=== PATIENT | female | born 1955 | race Caucasian/White ===

== ENCOUNTER 2021-05-05 20:24 | Inpatient (IN) | payer MEDICARE, OTHER, SELFPAY ==
[2021-05-05] VITALS (7 sets, daily range): BP systolic 81–135; BP diastolic 48–67; PULSE 83–124; RESP 16–24; TEMP 36.3; O2SAT 85–100; BMI 25.5
--- NOTE | 2021-05-05 20:28 | EKG12_ITS ---
Test Reason : SYNCOPE Blood Pressure : / mmHG Vent. Rate : 092 BPM Atrial Rate : 092 BPM P-R Int : 000 ms QRS Dur : 202 ms QT Int : 506 ms P-R-T Axes : 000 255 055 degrees QTc Int : 625 ms Ventricular-paced rhythm Biventricular pacemaker detected Abnormal ECG Confirmed by BROCK WHITE, KIERAN ([id number]), rewrite editor NICK VERGARA ([id number]) on 05/07/2021 9:31:49 AM Referred By: Confirmed By:KIERAN GUTIÉRREZ MD
--- NOTE | 2021-05-05 20:45 | CT_ITS ---
EXAM: CT HEAD WITHOUT INTRAVENOUS CONTRAST : 1955 CLINICAL INDICATION: syncope TECHNIQUE: Multiple axial images were obtained of the head without intravenous contrast. This CT exam was performed using one or more of the following dose reduction techniques: automated exposure control, adjustment of the mA and/or kV according to patient size, and/or use of iterative reconstruction technique. This report was created using [employer] report generation technology. COMPARISON: None. FINDINGS: BRAIN AND EXTRA-AXIAL SPACES: Unremarkable. No intra- or extra-axial hemorrhage. No evidence of acute infarct. No intracranial mass or mass effect. There is preservation of the garcia/white matter interface. Posterior fossa structures are unremarkable. Ventricles are appropriate for age. No hydrocephalus. Basal cisterns are patent. BONES/JOINTS: Unremarkable. No discrete lytic or blastic abnormalities. SINUSES: Unremarkable as visualized. Clear. MASTOID AIR CELLS: Unremarkable. Clear. ORBITS: Visualized globes, extraocular muscles, optic nerves and retrobulbar fat appear unremarkable. CT/Brain/Head without Contrast IMPRESSION: Negative head/brain CT without intravenous contrast. Individualized dose optimization techniques were used for this CT. at 2138 Reported and signed by: Devin Hung MD Electronically Signed: Devin Hung MD at 21:37 EDT Tel , Service support ,
--- NOTE | 2021-05-05 20:45 | RAD_ITS ---
EXAM: XR CHEST, 1 VIEW : 1955 CLINICAL INDICATION: syncope TECHNIQUE: Frontal view of the chest. This report was created using [employer] report generation technology. COMPARISON: None. FINDINGS: LUNGS AND PLEURAL SPACES: Unremarkable. No consolidation or edema. No pneumothorax. No effusion. HEART: Cardiac silhouette is enlarged in size. MEDIASTINUM: Central airways and mediastinal contour are unremarkable. BONES/JOINTS: Unremarkable. SOFT TISSUES: Unremarkable. TUBES, LINES AND DEVICES: Left side pacemaker is in place. RAD/Chest 1 View (Portable) IMPRESSION: Cardiomegaly with no acute pulmonary abnormality. at 2222 Reported and signed by: Devin Hung MD Electronically Signed: Devin Hung MD at 22:21 EDT Tel , Service support ,
--- NOTE | 2021-05-05 20:53 | ED.RN ---
pt brought back from CT, tech states patient had 2 syncopal episodes while in CT. Pt states she is not feeling well. Pt remains on the monitor, BP is low and HR is elevated. Dr Rayo notified.
[2021-05-05 20:58] LABS: Absolute Neutrophil Count 7.4 X10^3/uL (2.0-7.7); Basophil# 0.05 X10^3/uL; Basophil% 0.4 % (0-1); Eosinophil# 0.15 X10^3/uL; Eosinophils% 1.3 % (0-5); Hematocrit 41.3 % (37-47); Hemoglobin 13.1 g/dL (12.0-15.0); Lymphocyte % 21.6 % (19-41); Mean Corp Hgb Conc 31.7 g/dL (32-36); Mean Corpuscular Volume 91.6 fL (81-99); Mean Platelet Vol. 11.3 fl (6.2-12.0); Monocyte# 1.04 X10^3/uL; Monocyte% 9.3 % (0-10); NRBC Flagged by Analyzer 0 % (0-5); Neutrophil # 7.44 X10^3/uL (2.7-7.7); Platelet Count 198 K/mm3 (150-450); RBC Distribution Width CV 13.6 % (11.6-14.6); RBC Distribution Width SD 46.2 fl (35.1-43.9); Red Blood Count 4.51 M/mm3 (4.2-5.4); White Blood Count 11.1 K/mm3 (4.4-11.0)
[2021-05-05 21:12] LABS: Anion Gap 9 (5-15); BUN 29 mg/dL (7-18); BUN/Creat Ratio 32.6 RATIO (10-20); Calcium,Total 9.1 mg/dL (8.5-10.1); Chloride 105 mmol/L (98-107); Creatinine, Serum 0.89 mg/dL (0.55-1.02); EST Glomerular Filtration Rate 67 mL/min (>60); Est Glom Filt Rate - Afr Amer 81 mL/min (>60); Estimated Creatinine Clearance 57.42 ml/min; Glucose 119 mg/dL (74-106); Magnesium 2.3 mg/dL (1.6-2.6); Potassium 3.7 mmol/L (3.5-5.1); Sodium Level 140 mmol/L (136-145); Troponin-I HS 45 pg/mL (3.0-54.0)
[2021-05-06] VITALS (27 sets, daily range): BP systolic 106–129; BP diastolic 45–69; PULSE 66–74; RESP 13–22; TEMP 36.5–36.8; O2SAT 92–100; BMI 24.5
--- NOTE | 2021-05-06 00:04 | EX.ED.DYSGE1 ---
HPI History of Present Illness Chief Complaint: Syncope Narrative Narrative: Patient is a 65-year-old female with past medical history of heart failure who has had a pacemaker/defibrillator in place for about 8 years. She states today she was walking into her garage when she felt her heart beating abnormally and then had a bout of syncope. She did strike her head with the fall and with concern for the syncopal event as well as head trauma EMS was called to bring her in for evaluation. She denies any blood thinner use [facility] Medical History Cardiac defibrillator in place CHF (congestive heart failure) Pacemaker Allergy/AdvReac Type Severity Reaction Status Date / Time antibiotic Allergy PT UNABLE Uncoded 05/05/21 20:31 TO RESPOND-NEEDS F/U Social History Smoking Status: Never smoker ROS ROS ED Constitutional Constitutional ED: Denies chills or fever(s) ENT ENT ED: Denies sore throat Cardiovascular Cardiovascular: Reports palpitations and racing heartbeat; Denies chest pain Respiratory/Chest Respiratory/Chest: Denies cough or dyspnea Gastrointestinal Gastrointestinal: Reports nausea; Denies abdominal pain, diarrhea or vomiting Genitourinary Genitourinary ED: Denies dysuria Musculoskeletal Musculoskeletal: Denies back pain, myalgias or neck pain Integumentary Reports other Details: Positive head laceration ; Denies rash Neurologic Neurologic: Denies headache(s) Hematologic/Lymphatic Hematologic/Lymphatic: Denies easy bleeding or easy bruising EXAM Physical Exam Const Vital Signs: 05/05/21 20:26 05/05/21 20:31 05/05/21 22:38 Temperature 97.4 F L Temperature Source Temporal Pulse Rate 93 95 Respiratory Rate 24 H 16 Respiratory Effort Normal Non-Labored Respiratory Pattern Normal Blood Pressure 128/67 H 134/59 H Blood Pressure Mean 87 84 Pulse Ox 96 100 Oxygen Delivery Method Room Air Positive well nourished and well developed General Appearance ED: well developed HEENT HEENT Narrative: Patient has a hematoma to the right occipital/temporal portion of the scalp with a 2.5 cm linear laceration that is subcutaneous layer deep with minimal ooze of blood and no foreign body. No signs of depressed or basilar skull fracture Eyes PERRL and EOMs intact bilaterally Neck supple Neck Narrative: No midline pain on palpation no bony deformity or step-off of the cervical spine Chest Wall palpation of chest normal Resp normal respiratory effort and clear to auscultation bilaterally Cardio regular rate and regular rhythm GI non-tender, non-distended and no masses Auscultation: normoactive bowel sounds Palpation: soft Back/Spine Back/Spine Narrative: No bony deformity or step-off of the thoracic or lumbar spine no midline pain with palpation Extremity normal to inspection Neuro oriented x3 and CN's II-XII intact bilaterally Sensorium / Orientation: alert Motor Exam: strength 5/5 throughout Psych mental status grossly normal Skin no rashes or lesions noted Skin Narrative: Hematoma and laceration to the scalp as documented above MDM MDM MDM Narrative Medical decision making narrative: Patient presented to the ER awake and alert with normal neurologic exam and no signs of depressed or basilar skull fracture. However with the syncopal event and head trauma basic work-up and head CT was ordered. Because of the patient's pacemaker history it was interrogated and did confirm she has had multiple bouts of ventricular tachycardia. Patient also had 2 bouts of syncope while over in CAT scan consistent with the recurrent V. tach. Labs revealed no clinically significant findings and head CT revealed no acute trauma. However with recurrent V. tach episodes I do feel the patient will need placed in the hospital for further care. I discussed the case with cardiology and they feel she will need an automatic dry starch operator which we do not have and therefore when he transferred. The case was discussed with [facility] and they do agree to accept the patient at this time. Patient was started on amiodarone drip secondary to recurrent V. tach. Patient had the right scalp wound cleaned with chlorhexidine, it was anesthetized with 5 mL of 2% lidocaine with epinephrine local fashion. The wound was copiously irrigated with normal saline and then 7 mario were placed into the wound. This brought together the wound with good approximation. Patient tolerated procedure well without complication Lab Data Attestation: I reviewed the patient's lab results. Labs: Laboratory Results - last 24 hr 05/05/21 05/05/21 20:25 20:25 WBC 11.1 H RBC 4.51 Hgb 13.1 Hct 41.3 MCV 91.6 MCH 29.0 MCHC 31.7 L RDW Std Deviation 46.2 H RDW Coeff of Bonifacio 13.6 Plt Count 198 MPV 11.3 Immature Gran % (Auto) 0.400 Neut % (Auto) 67.0 Lymph % (Auto) 21.6 [place] % (Auto) 9.3 Eos % (Auto) 1.3 Baso % (Auto) 0.4 Absolute Neuts (auto) 7.4 Absolute Lymphs (auto) 2.40 Nucleated RBC % 0 Sodium 140 Potassium 3.7 Chloride 105 Carbon Dioxide 26.0 Anion Gap 9 BUN 29 H Creatinine 0.89 Estim Creat Clear Calc 57.42 Est GFR (MDRD) Af Amer 81 Est GFR (MDRD) Non-Af 67 BUN/Creatinine Ratio 32.6 H Glucose 119 H Calcium 9.1 Magnesium 2.3 Troponin I High Sens 45 Radiography Diagnostic Testing: Clinical Impression(s) from Imaging Studies Brain CT 05/05/21 20:45 IMPRESSION: Negative head/brain CT without intravenous contrast. Individualized dose optimization techniques were used for this CT. at 2138 Reported and signed by: Devin Hung MD Electronically Signed: Devin Hung MD at 21:37 EDT Tel , Service support , Chest X-Ray 05/05/21 20:45 IMPRESSION: Cardiomegaly with no acute pulmonary abnormality. at 2222 Reported and signed by: Devin Hung MD Electronically Signed: Devin Hung MD at 22:21 EDT Tel , Service support , Discharge Plan Triage Chief Complaint: Syncope ED Provider: Clayton Rayo Dx/Rx/DC Orders Clinical Impression: Nonsustained paroxysmal ventricular tachycardia, Syncope and collapse, Laceration of scalp Primary Care Provider: Care Physician,No Primary Referrals: Care Physician,No Primary [Primary Care Provider] - Disposition Disposition: Transfer to Another Type [facility]
--- NOTE | 2021-05-06 01:52 | ED.RN ---
[facility] PAGED FOR TRANSFER AT THIS TIME. THEY WILL CALL BACK
--- NOTE | 2021-05-06 01:55 | ED.RN ---
[facility] DENIED THE PATIENT BECAUSE WE ARE NOT IN THEIR ZONE. THEY SAID THE CLOSET FOR THIS PATIENT WOULD BE [facility] AND THEY ARE CURRENTLY FULL AND NOT ACCEPTING ANY PATIENTS. THE PATIENT REQUEST [facility] NEXT.
--- NOTE | 2021-05-06 02:10 | ED.RN ---
ACCEPTED AT [facility], BUT DO NOT HAVE A BED ASSIGNMENT
--- NOTE | 2021-05-06 07:35 | HP.PCM.HOS_ITS ---
HPI - General General Date of Admission: 05/06/21 HPI Narrative JUDIE COLMENARES, is a 65 F with a PMH as outlined who was admitted via the ED with a complaint of abnormal heart beat and syncope. She has a history of heart failure and has a pacemaker/defibrillator in place; she usually follows with her behavior management specialist at [facility] in [place]. She says she hit her head during the syncope. She denied any chest pain, nausea vomiting or abdominal pain. Review of symptoms otherwise negative. She is not on any blood thinner. She apparently had multiple episodes of vtach. She was started on amiodarone drip on arrival in the ED. vitals showed blood pressure of 116/50 with pulse rate of 66, respiratory rate of 21 and she was saturating at 96% on room air. Of note, patient also had a presyncopal episode while she was in the CT scan suite. CBC and BMP were both unremarkable. Initial troponin was negative but subsequently trended upwards to the 200s. Plan was for patient to be transferred to [facility] for review by an desk pen set assembler and she was accepted at [facility]. However due to lack of availability of beds and patient seen down in the ER for nearly 12 hours, she was admitted to the floor pending transfer. [facility] Medical History (Updated 05/06/21 @ 17:[address] Nino Diaz MD) Cardiac defibrillator in place CHF (congestive heart failure) Irregular heart beat Pacemaker Home Medications furosemide 20 mg PO DAILY 05/06/21 [History Last Taken 05/05/21 10:00] lisinopril 5 mg PO DAILY 05/06/21 [History Last Taken 05/05/21 12:00] potassium 99 mg PO DAILY 05/06/21 [History Last Taken 05/05/21 10:00] Allergy/AdvReac Type Severity Reaction Status Date / Time antibiotic Allergy PT UNABLE Uncoded 05/05/21 20:31 TO RESPOND-NEEDS F/U Social History Smoking Status: Never smoker ROS Constitutional Constitutional: Reports malaise; Denies anorexia, change in weight, chills, fatigue, fever(s), night sweats or weakness ENT HEENT: Reports nasal congestion; Denies abnormal hearing or hearing loss Cardiovascular Cardiovascular: Reports rapid heart rate and syncope; Denies chest pain, dyspnea on exertion, lightheadedness, orthopnea, palpitations or paroxysmal nocturnal dyspnea Respiratory/Chest Respiratory/Chest: Denies cough, shortness of breath at rest, shortness of breath with exertion or wheezing Gastrointestinal Gastrointestinal: Reports abdominal pain; Denies diarrhea, nausea or vomiting Genitourinary Genitourinary: Denies burning urination Musculoskeletal Musculoskeletal: Denies arthralgias Neurologic Neurologic: Reports dizziness and syncope; Denies focal weakness, headache(s), numbness or seizures Psychiatric Psychiatric: Denies anxiety or depression Endocrine Endocrinology: Denies change in body appearance Hematologic/Lymphatic Hematologic/Lymphatic: Denies anemia Vital Signs Vital Signs Vital Signs: 05/05/21 20:26 05/05/21 20:31 05/05/21 21:00 Temperature 97.4 F L Temperature Source Temporal Pulse Rate 93 124 H Respiratory Rate 24 H 22 H Respiratory Effort Normal Non-Labored Respiratory Pattern Normal Blood Pressure 128/67 H 81/48 L Blood Pressure Mean 87 59 Pulse Ox 96 85 Oxygen Delivery Method Room Air Room Air Oxygen Flow Rate (L/min) 05/05/21 21:10 05/05/21 21:30 05/05/21 22:30 Temperature Temperature Source Pulse Rate 83 96 Respiratory Rate 18 22 H 20 H Respiratory Effort Respiratory Pattern Blood Pressure 135/58 H 131/58 H Blood Pressure Mean 83 82 Pulse Ox 96 94 99 Oxygen Delivery Method Nasal Cannula Nasal Cannula Nasal Cannula Oxygen Flow Rate (L/min) 4 4 4 05/05/21 22:38 05/05/21 23:30 05/06/21 03:06 Temperature Temperature Source Pulse Rate 95 95 73 Respiratory Rate 16 18 18 Respiratory Effort Respiratory Pattern Blood Pressure 134/59 H 124/57 H 117/46 L Blood Pressure Mean 84 79 69 Pulse Ox 100 98 92 Oxygen Delivery Method Nasal Cannula Nasal Cannula Oxygen Flow Rate (L/min) 2 2 05/06/21 04:54 05/06/21 05:02 05/06/21 06:10 Temperature Temperature Source Pulse Rate 72 73 68 Respiratory Rate 16 18 18 Respiratory Effort Respiratory Pattern Blood Pressure 116/56 L 114/49 L 112/60 Blood Pressure Mean 76 70 77 Pulse Ox 98 98 98 Oxygen Delivery Method Room Air Room Air Oxygen Flow Rate (L/min) 05/06/21 07:21 Temperature 97.7 F L Temperature Source Oral Pulse Rate Respiratory Rate Respiratory Effort Respiratory Pattern Blood Pressure Blood Pressure Mean Pulse Ox Oxygen Delivery Method Oxygen Flow Rate (L/min) Weight Weight: 158 lb 4.67 oz Body Mass Index (BMI) 25.5 Physical Exam Const alert, oriented x3, healthy appearing and well nourished General Appearance: cooperative HEENT normocephalic Eyes PERRL, EOMs intact bilaterally and conjunctivae normal Neck no lymphadenopathy Resp normal respiratory effort, no retractions, no use of accessory muscles and clear to auscultation bilaterally Cardio regular rate, regular rhythm, S1 normal heart sound, S2 normal heart sound and no murmurs GI normal to inspection, nondistended, normoactive bowel sounds, soft to palpation, non-tender and non-distended Extremity normal to inspection, full ROM and no clubbing, cyanosis or edema Peripheral Pulses: Yes pulses 2+ throughout Skin no rashes or lesions noted Neuro oriented x3 and CN's II-XII intact bilaterally Sensorium / Orientation: awake and alert Psych affect normal Results Lab / Micro Data Result Diagrams: 05/05/21 20:25 05/05/21 20:25 Labs: Laboratory Results - last 24 hr 05/05/21 20:25: WBC 11.1 H, RBC 4.51, Hgb 13.1, Hct 41.3, MCV 91.6, MCH 29.0, MCHC 31.7 L, RDW Std Deviation 46.2 H, RDW Coeff of Bonifacio 13.6, Plt Count 198, MPV 11.3, Immature Gran % (Auto) 0.400, Neut % (Auto) 67.0, Lymph % (Auto) 21.6, [place] % (Auto) 9.3, Eos % (Auto) 1.3, Baso % (Auto) 0.4, Absolute Neuts (auto) 7.4, Absolute Lymphs (auto) 2.40, Nucleated RBC % 0 05/05/21 20:25: Sodium 140, Potassium 3.7, Chloride 105, Carbon Dioxide 26.0, An ion Gap 9, BUN 29 H, Creatinine 0.89, Estim Creat Clear Calc 57.42, Est GFR ( MDRD) Af Amer 81, Est GFR (MDRD) Non-Af 67, BUN/Creatinine Ratio 32.6 H, Glucose 119 H, Calcium 9.1, Magnesium 2.3, Troponin I High Sens 45 Micro: Microbiology 05/05/21 23:30 Nasal Secretion SARS-CoV-2 Antigen (Rapid) - Final Radiology Impression Brain CT 05/05/21 20:45 IMPRESSION: Negative head/brain CT without intravenous contrast. Individualized dose optimization techniques were used for this CT. at 2138 Reported and signed by: Devin Hung MD Electronically Signed: Devin Hung MD at 21:37 EDT Tel , Service support , Chest X-Ray 05/05/21 20:45 IMPRESSION: Cardiomegaly with no acute pulmonary abnormality. at 2222 Reported and signed by: Devin Hung MD Electronically Signed: Devin Hung MD at 22:21 EDT Tel , Service support , Assessment & Plan Assessment/Plan (1) Nonsustained paroxysmal ventricular tachycardia: (2) Syncope and collapse: (3) Laceration of scalp: PLAN: #syncope due to ventricular tachycardia * patient accepted at [facility], she is only being admitted here because she remained in the ED for about 12 hours pending transfer. Patient understands that we do not have an desk pen set assembler in-house and per discussion with cardiology, the most likely cause of her symptoms might be a broken defibrillator lead for which she will need evaluation by electrophysiology. Patient understands this and is willing to be admitted to await transfer when a bed is available at [facility]. * She is currently on amiodarone drip. We will continue. Cycle troponins. Initial troponin was negative but trended up to the mid 200s. * Cardiology consulted and on board. 2D echo ordered. * #Paroxysmal ventricular tachycardia: As above #History of heart failure with reduced ejection fraction * EF not known. 2D echo pending. However she does have a defibrillator and pacemaker which she states was put in because her heart function was reduced due to heart failure. * On p.o. Lasix 20 mg daily. * #Nonstemi * troponin was initially negative, but subsequently trended upwards to 200s. * cardiology consulted * she had 2D echo which showed EF of 10% with severe global hypokinesis * cardiology considering scheduling patient for cardiac cath if she is not transferred to [facility] by 05/07/2021 * #Hypertension: On lisinopril DVT prophylaxis: Lovenox CODE STATUS: Full code * Patient counseled extensively about different types of CODE STATUS including full code, DNR CCA and DNR CCA. Patient elects to be full code. * Total [id number] time 17 minutes. * Disposition: Awaiting transfer to [facility]. I did call [facility] transfer line to follow-up. There is still no bed available as at now. Patient did get a bed at [facility] and was transferred there on 05/06/20 21. This note therefore serves as both an admission H&P and discharge summary. Charges/Coding Visit Charges OBSV E&M: 05504 Observ/hosp same date L3 Procedures Hospitalists Procedures: 17254 Advncd Care Plan 30 Min
--- NOTE | 2021-05-06 07:37 | NURSING ---
DR KRYSTEN HYDE
--- NOTE | 2021-05-06 07:41 | NURSING ---
PCU KORAM SYNCOPE, VTACH
[2021-05-06 09:12] LABS: Troponin-I HS 246 pg/mL (3.0-54.0)
[2021-05-06] MEDS: 0.9% Saline Lock 10 ML Syringe IV (10:48)
[2021-05-06] MEDS: Enoxaparin 40 MG/0.4 ML Syringe SC (10:48)
--- NOTE | 2021-05-06 11:04 | PCS.PANDOC ---
PANDEMIC DOCUMENTATION INITIATED: Date: 05/06/2021 Time: 0800
[2021-05-06 11:35] LABS: Troponin-I HS 210 pg/mL (3.0-54.0)
[2021-05-06] MEDS: Furosemide 20 MG Tablet PO (11:35)
--- NOTE | 2021-05-06 14:51 | ECHOD_ITS ---
Reason For Study: ARRHYTHMIA Procedure This was a 2D Doppler, Color Flow transthoracic echocardiogram. Exam performed portable in patient room. Left Ventricle Severely dilated left ventricle. The estimated ejection fraction is 10 %. There is severe global hypokinesis of the left ventricle. Right Ventricle Normal RV size. ICD or pacer leads identified within the right ventricle. Normal systolic function. Atria The left atrium is moderately enlarged. Normal right atrium. Mitral Valve Normal mitral valve. Moderate (2+) eccentric mitral valve insufficiency. Tricuspid Valve Normal tricuspid valve. Mild tricuspid valve insufficiency. Pulmonary artery systolic pressure is 40 mmHg. Aortic Valve Trisinus/trileaflet aortic valve. Mild (1+) aortic valve insufficiency. Pulmonic Valve Normal pulmonic valve. Great Vessels Normal aortic root. The pulmonary artery is normal size. Normal inferior vena cava. Pericardium/Pleural Small pericardial effusion. There are no echocardiographic indications of cardiac tamponade. MMode/2D Measurements & Calculations LVIDd: 8.8 cm IVSd: 0.88 cm Ao root diam: 3.0 cm LVIDs: 8.2 cm LVPWd: 1.2 cm RVDd: 3.9 cm FS: 7.2 % LAV(MOD-bp): 96.1 ml LVAd ap4: 67.2 cm2 SV(MOD-sp4): 86.9 ml LAV(MOD-bp) Indexed: 54.1 ml/m2 LVLd ap4: 9.7 cm LAV(MOD-sp2): 95.5 ml EDV(MOD-sp4): 388.7 ml LAV(MOD-sp4): 92.6 ml EDV(sp4-el): 395.4 ml LVAs ap4: 57.9 cm2 LVLs ap4: 9.2 cm ESV(MOD-sp4): 301.8 ml ESV(sp4-el): 307.4 ml EF(MOD-sp4): 22.3 % EF(sp4-el): 22.3 % SV(sp4-el): 88.0 ml LA A4 area: 27.4 cm2 LA dimension(2D): 5.3 cm RA A4 area: 18.2 cm2 Time Measurements MV dec time: 0.18 sec Doppler Measurements & Calculations MV E max sandro: 119.7 cm/sec Lat Peak E' Sandro: 6.4 cm/sec Med Peak E' Sandro: 5.9 cm/sec MV A max sandro: 91.4 cm/sec E/E' lat: 18.8 E/E' med: 20.2 MV E/A: 1.3 Ao V2 max: 122.9 cm/sec AI max sandro: 357.8 cm/sec LV V1 max: 63.7 cm/sec Ao max P.0 mmHg AI max P.2 mmHg LV V1 max P.6 mmHg AI dec slope: 213.9 cm/sec2 AI P1/2t: 489.9 msec PA V2 max: 94.1 cm/sec TR max sandro: 298.8 cm/sec TR max P.8 mmHg ECHO/Echo Complete Interpretation Summary The estimated ejection fraction is 10 %. There is severe global hypokinesis of the left ventricle. ICD or pacer leads identified within the right ventricle. Small pericardial effusion. There are no echocardiographic indications of cardiac tamponade. Severely dilated left ventricle. Pulmonary artery systolic pressure is 40 mmHg. Ordering Physician: Nino Diaz Performed By: Lore Isabel RDCS
[2021-05-06 15:17] LABS: Troponin-I HS 172 pg/mL (3.0-54.0)
--- NOTE | 2021-05-06 17:54 | CON.PCM.CA_ITS ---
Assessment & Plan Assessment/Plan (1) Nonsustained paroxysmal ventricular tachycardia: PLAN: She presents with recurrent nonsustained ventricular tachycardia. The etiology of the above is likely secondary to her severe cardiomyopathy. Certainly ischemia needs to be excluded. Her cardiac troponin enzymes were noted to be abnormal which I suspect is from the wide-complex tachycardia. I would recommend a cardiac catheterization to exclude obstructive coronary disease Restart her carvedilol at 3.125 mg and titrate upwards as appropriate Continue intravenous amiodarone and switch over to oral amiodarone We will consult with an corporate services manager after the above tests are performed We will formally interrogate her defibrillator in a.m. to exclude any lead fracture (2) Syncope and collapse: PLAN: She had a syncopal episode likely from ventricular tachyarrhythmia. We will keep patient on the amiodarone for now. (3) Cardiomyopathy: PLAN: She does have severe cardiomyopathy presumably nonischemic. She does not know the results of her cardiac catheterization and we will try and obtain those results. At this time however the patient is agreeable to undergoing a left heart catheterization to exclude obstructive coronary disease (4) CHF (congestive heart failure): PLAN: Suggestive of congestive heart failure chronic systolic. Would restart oral carvedilol Continue lisinopril and eventually would recommend Entresto Continue Lasix Would recommend spironolactone Salt restriction I have suggested to the patient that it is in her interest to be more compliant with her medications. She is also at high risk if she should contract the COVID- 19 infection. She has expressed understanding. HPI Consult Data Date of Consult: 05/07/21 HPI Narrative HPI Narrative: JUDIE COLMENARES, is a 65 F who presented to the emergency room last night complaining of recurrent near syncopal episodes as well as a syncopal episode while in CAT scan. She says that this has been going on for a few days. She denied any chest pain or shortness breath or paroxysmal nocturnal dyspnea or pedal edema. She had previously undergone implantation of a defibrillator approximately 8 years ago and was following up with [facility]. She however had not been compliant with her beta-alicja because it did not make her feel good. She had been in her normal state of health until this happened. She presented to the emergency room and was noted to be ventricular paced. On interrogation of her defibrillator she was noted to have had multiple episodes of ventricular tachyarrhythmia. Cardiology was called for further evaluation and management and had suggested that the patient be transferred to a facility with EP evaluation however this was not able to be accomplished because of the bed situation regarding Covid. Since being here she has been doing well. An echocardiogram performed this afternoon demonstrated an ejection fraction of 10%. [facility] Medical History (Updated 05/06/21 @ 17:[address] Nino Diaz MD) Cardiac defibrillator in place CHF (congestive heart failure) Irregular heart beat Pacemaker Home Medications furosemide 20 mg PO DAILY 05/06/21 [History Last Taken 05/05/21 10:00] lisinopril 5 mg PO DAILY 05/06/21 [History Last Taken 05/05/21 12:00] potassium 99 mg PO DAILY 05/06/21 [History Last Taken 05/05/21 10:00] Allergy/AdvReac Type Severity Reaction Status Date / Time antibiotic Allergy PT UNABLE Uncoded 05/05/21 20:31 TO RESPOND-NEEDS F/U Social History Smoking Status: Never smoker ROS Constitutional Constitutional: Denies fever(s) or weight loss Eyes Eyes: Reports systems reviewed and no addt'l complaints, except as documented ENT HEENT: Reports systems reviewed and no addt'l complaints, except as documented Cardiovascular Cardiovascular: Denies chest pain at rest, chest pain with activity, dyspnea at rest, dyspnea on exertion, edema, palpitations or paroxysmal nocturnal dyspnea Respiratory/Chest Respiratory/Chest: Denies dyspnea on exertion, productive cough, shortness of breath at rest or shortness of breath with exertion Gastrointestinal Gastrointestinal: Denies change in bowel habits, nausea, vomiting or weight changes Genitourinary Genitourinary: Denies difficulty urinating Musculoskeletal Musculoskeletal: Denies joint stiffness or muscle weakness Integumentary Integumentary: Denies lesions Neurologic Neurologic: Reports dizziness and syncope Psychiatric Psychiatric: Denies anxiety Endocrine Endocrinology: Denies excessive sweating or fatigue Hematologic/Lymphatic Hematologic/Lymphatic: Denies anemia Allergic/Immunologic Allergic/Immunologic: Denies seasonal rhinorrhea Physical Exam Const alert, oriented x3 and no apparent distress General Appearance: cooperative HEENT hearing grossly normal bilaterally Head and Scalp: atraumatic Eyes EOMs intact bilaterally Neck General: normal visual inspection Chest inspection of chest normal and palpation of chest normal Resp normal respiratory effort Auscultation: clear to auscultation bilaterally Cardio regular rate, regular rhythm, S1 normal heart sound and S2 normal heart sound Jugular Venous Distention: JVD GI normal to inspection, nondistended, normoactive bowel sounds Extremity normal capillary refill and no pedal edema Peripheral Pulses: Yes pulses 2+ throughout and femoral pulses present Skin no rashes or lesions noted Neuro oriented x3 and CN's II-XII intact bilaterally Psych Appearance: grossly normal and appropriate Risk Stratification Risk Stratification Applicable: No Objective Data Vital Signs: Vital Signs Temp Pulse Resp BP Pulse Ox 98.3 F 66 18 111/45 L 98 05/06/21 16:00 05/06/21 17:00 05/06/21 17:00 05/06/21 17:00 05/06/21 17:00 Oxygen Flow Rate (L/min) 2 Oxygen Delivery Method Room Air Weight: 151 lb 10.848 oz Body Mass Index (BMI) 24.5 Intake & Output: Intake and Output for Last 24 Hours 05/04/21 05/05/21 05/06/21 23:59 23:59 23:59 Intake Total 654.75 / 654.75 Balance 654.75 / 654.75 Lab / Micro Data Result Diagrams: 05/05/21 20:25 05/05/21 20:25 Labs: Laboratory Results - last 24 hr 05/05/21 20:25: WBC 11.1 H, RBC 4.51, Hgb 13.1, Hct 41.3, MCV 91.6, MCH 29.0, MCHC 31.7 L, RDW Std Deviation 46.2 H, RDW Coeff of Bonifacio 13.6, Plt Count 198, MPV 11.3, Immature Gran % (Auto) 0.400, Neut % (Auto) 67.0, Lymph % (Auto) 21.6, Rankin % (Auto) 9.3, Eos % (Auto) 1.3, Baso % (Auto) 0.4, Absolute Neuts (auto) 7.4, Absolute Lymphs (auto) 2.40, Nucleated RBC % 0 05/05/21 20:25: Sodium 140, Potassium 3.7, Chloride 105, Carbon Dioxide 26.0, Anion Gap 9, BUN 29 H, Creatinine 0.89, Estim Creat Clear Calc 57.42, Est GFR (MDRD) Af Amer 81, Est GFR (MDRD) Non-Af 67, BUN/Creatinine Ratio 32.6 H, Gluco se 119 H, Calcium 9.1, Magnesium 2.3, Troponin I High Sens 45 05/06/21 08:40: Troponin I High Sens 246 H* 05/06/21 10:32: Troponin I High Sens 210 H* 05/06/21 14:40: Troponin I High Sens 172 H* Micro: Microbiology 05/05/21 23:30 Nasal Secretion SARS-CoV-2 Antigen (Rapid) - Final Cardiology Labs/Tests 05/05/21 20:25: WBC 11.1 H, RBC 4.51, Hgb 13.1, Hct 41.3, MCV 91.6, MCH 29.0, MCHC 31.7 L, Plt Count 198, MPV 11.3, Immature Gran % (Auto) 0.400, Neut % (Auto) 67.0, Lymph % (Auto) 21.6, Rankin % (Auto) 9.3, Eos % (Auto) 1.3, Baso % (Auto) 0.4, Absolute Neuts (auto) 7.4, Nucleated RBC % 0 05/05/21 20:25: Sodium 140, Potassium 3.7, Chloride 105, Carbon Dioxide 26.0, Anion Gap 9, BUN 29 H, Creatinine 0.89, Est GFR (MDRD) Af Amer 81, Est GFR (MDRD) Non-Af 67, BUN/Creatinine Ratio 32.6 H, Glucose 119 H, Calcium 9.1, Magnesium 2.3 Rhythm: EKG: Normal sinus rhythm with ventricular pacing ECHO: Stress Test: Cardiac Cath: PCI: CT Surgery: Holter monitor: EPS: PPM: CXR: Chest CT Scan: Radiography Diagnostic Testing: Radiology Impression Brain CT 05/05/21 20:45 IMPRESSION: Negative head/brain CT without intravenous contrast. Individualized dose optimization techniques were used for this CT. at 2138 Reported and signed by: Devin Hung MD Electronically Signed: Devin Hung MD at 21:37 EDT Tel , Service support , Chest X-Ray 05/05/21 20:45 IMPRESSION: Cardiomegaly with no acute pulmonary abnormality. at 2222 Reported and signed by: Devin Hung MD Electronically Signed: Devin Hung MD at 22:21 EDT Tel , Service support , Echocardiogram 05/06/21 14:51 Interpretation Summary The estimated ejection fraction is 10 %. There is severe global hypokinesis of the left ventricle. ICD or pacer leads identified within the right ventricle. Small pericardial effusion. There are no echocardiographic indications of cardiac tamponade. Severely dilated left ventricle. Pulmonary artery systolic pressure is 40 mmHg. Ordering Physician: Nino Diaz Performed By: Lore Isabel, FRANTZ
--- NOTE | 2021-05-06 20:44 | NURSING ---
Report called to NEDRA Mcgrath at [facility] main campus. [facility] called for transport as well.
[2021-05-06] MEDS: Carvedilol 3.125 MG TABLET PO (21:08)
--- NOTE | 2021-05-06 21:42 | NURSING ---
Report given to [facility], pt leaving now w/ belongings. RN at [facility] called and updated on pt status.
== END 2021-05-06 21:45 | disposition short-term general hospital (02) | DRG 281 ==
LOC: ED 05-06 02:16 → PCU 05-06 07:49
PROVIDERS: Admitting Provider Student in an Organized Health Care Education/Training Program; Emergency Provider Emergency Medicine; Visit Provider Student in an Organized Health Care Education/Training Program
DX: I47.2 Ventricular tachycardia (principal); I21.A1 Myocardial infarction type 2; I50.22 Chronic systolic (congestive) heart failure; I42.8 Other cardiomyopathies; R55 Syncope and collapse; I11.0 Hypertensive heart disease with heart failure; S01.01XA Laceration without foreign body of scalp, initial encounter; W19.XXXA Unspecified fall, initial encounter; Y93.01 Activity, walking, marching and hiking; Y92.015 Private garage of single-family (private) house as the place of occurrence of the external cause; Z95.810 Presence of automatic (implantable) cardiac defibrillator; Z66 Do not resuscitate; Z79.899 Other long term (current) drug therapy
CPT/HCPCS: 36415; 70450; 71045; 80048; 83735; 84484; 85025; 87426; 93005; 93306; 99285; J7040; A4216

== ENCOUNTER 2021-05-13 21:21 | Observation (INO) | payer MEDICARE, OTHER, SELFPAY ==
[2021-05-13 21:22] VITALS: BP 144/80; PULSE 76; PULSE 81; RESP 16; RESP 24; TEMP 36.5; O2SAT 92; O2SAT 96; BMI 24.4
[2021-05-13 21:32] VITALS: O2SAT 91
--- NOTE | 2021-05-13 21:45 | RAD_ITS ---
INDICATION: sob EXAMINATION/TECHNIQUE: X-RAY - XR Chest 1 View COMPARISON: 05/05/2021 chest x-ray. Also compared with CT chest 05/13/2021. FINDINGS: LINES/DEVICES: 3-lead cardiac stimulator device left chest. LUNGS: Subtle alveolar opacity is better visualized on comparison CT highly suggestive of alveolar edema. No confluent consolidation. No nodule or mass. No significant pleural effusion. No pneumothorax. MEDIASTINUM AND CARDIOVASCULAR STRUCTURES: Significant cardiomegaly. BONES AND SOFT TISSUES: Within normal limits for age. RAD/Chest 1 View (Portable) IMPRESSION: 1. Cardiomegaly and pulmonary edema. Electronically Signed: Adalberto Boyle DO at 23:16 EDT Tel , Service support ,
--- NOTE | 2021-05-13 21:46 | EKG12_ITS ---
Test Reason : DYSRHYTHMIA Blood Pressure : / mmHG Vent. Rate : 070 BPM Atrial Rate : 070 BPM P-R Int : 126 ms QRS Dur : 178 ms QT Int : 548 ms P-R-T Axes : 097 250 056 degrees QTc Int : 591 ms Atrial-sensed ventricular-paced rhythm Biventricular pacemaker detected Abnormal ECG Confirmed by SAHRA WHITE, KANDI ([id number]), food editor NICK VERGARA ([id number]) on 05/15/2021 9:26:04 AM Referred By: RENÉ Confirmed By:KANDI BOCANEGRA MD
--- NOTE | 2021-05-13 21:52 | ED.VIS.DYS ---
HPI History of Present Illness Chief Complaint: Shortness of Breath Informant: patient Narrative Narrative: Presents with sudden palpitations this evening with dyspnea. States she sat down, did not have lightheaded symptoms. However states if she does not sit down it were to happen. She was just discharged 4 days ago from [facility] after being transferred up there from here for similar. She states history of cardiomyopathy AICD for the past 8 years. She was seen a week ago for syncopal episodes with palpitations. She is found to have paroxysmal ventricular tachycardia from interrogation. She had 2 syncopal episodes while in [place]. States initially admitted here and had to be transferred. From records there is no beds therefore admitted until bed was available. She was there for 3 days a series reinterrogation reported that pacemaker did fire while in the department here. She does not recall that. Denies recent vomiting or diarrhea. Patient reports she is on amiodarone 400 mg twice daily along with Farxiga for her rhythm. Also started on Entresto for blood pressure control. She is followed by cardiology at [place], Dr. Weaver. She reports had dyspnea during the palpitations per EMS report pulse ox was 85% she was placed on oxygen brought in emergency department. States symptoms subsided she is currently 92% oxygen. From records notes history of atrial fibrillation she is not on any anticoagulation medicines. Prior similar symptoms: Yes PFSH PFSH Medical History Cardiac defibrillator in place CHF (congestive heart failure) Irregular heart beat Pacemaker Home Medications furosemide 20 mg PO DAILY 05/06/21 [History Last Taken 05/05/21 10:00] potassium 99 mg PO DAILY 05/06/21 [History Last Taken 05/05/21 10:00] amiodarone 400 mg PO BID 05/13/21 [History Last Taken Unknown] carvedilol 6.25 mg PO BID 05/13/21 [History Last Taken Unknown] dapagliflozin [Farxiga] 10 mg PO DAILY 05/13/21 [History Last Taken Unknown] sacubitril-valsartan [Entresto] 1 tab PO BID 05/13/21 [History Last Taken Unknown] spironolactone 12.5 mg PO DAILY 05/13/21 [History Last Taken Unknown] Allergy/AdvReac Type Severity Reaction Status Date / Time antibiotic Allergy PT UNABLE Uncoded 05/05/21 20:31 TO RESPOND-NEEDS F/U Social History Smoking Status: Never smoker ROS ROS ED Constitutional Constitutional ED: Denies chills, fever(s) or sweats Eyes Eyes: Denies change in vision ENT ENT ED: Denies dysphagia or sore throat Cardiovascular Cardiovascular: Reports palpitations and racing heartbeat; Denies chest pain or leg edema Respiratory/Chest Respiratory/Chest: Reports dyspnea; Denies cough or dyspnea on exertion Gastrointestinal Gastrointestinal: Denies abdominal pain, diarrhea, nausea or vomiting Genitourinary Genitourinary ED: Denies dysuria, hematuria or urinary frequency Musculoskeletal Musculoskeletal: Denies back pain, extremity pain or neck pain Integumentary Denies rash or wounds Neurologic Neurologic: Denies headache(s), paresthesias or weakness EXAM Physical Exam Const Vital Signs: 05/13/21 21:22 05/13/21 21:32 05/13/21 22:31 Temperature 97.7 F L Temperature Source Oral Pulse Rate 81 68 Respiratory Rate 24 H 16 Respiratory Effort Normal Non-Labored Respiratory Depth Normal Respiratory Pattern Normal Blood Pressure 144/80 H Blood Pressure Mean 101 Pulse Ox 92 93 Oxygen Delivery Method Room Air Room Air Room Air 05/14/21 00:15 Temperature Temperature Source Pulse Rate 66 Respiratory Rate 18 Respiratory Effort Respiratory Depth Respiratory Pattern Blood Pressure 117/87 H Blood Pressure Mean 97 Pulse Ox 96 Oxygen Delivery Method Room Air Positive well nourished and well developed General Appearance ED: well developed and NAD HEENT Reports moist mucous membranes normocephalic and atraumatic Eyes PERRL, EOMs intact bilaterally and conjunctivae normal General Eye ED: Yes normal appearance of both eyes Neck no lymphadenopathy and supple General: Negative for tenderness Chest Wall Chest: Negative for tenderness Resp normal respiratory effort and normal air movement Effort and Inspection: symmetric chest movement; Negative for respiratory distress Cardio regular rate, regular rhythm and no murmurs Peripheral Pulses: pulses 2+ throughout GI normal to inspection, nondistended, normoactive bowel sounds and non-tender Palpation: Negative for guarding or rebound tenderness present Back/Spine no CVA tenderness and no thoracic nor lumbar tenderness Extremity normal to inspection General Extremety ED: Negative for edema or tenderness General Extremity: Negative for edema Neuro oriented x3 and no sensory deficits noted Sensorium / Orientation: awake and alert Skin no rashes or lesions noted and no wounds MDM MDM MDM Narrative Medical decision making narrative: Patient EKG paced rhythm. Patient without chest pain. I had patient's ICD interrogated, discussion with sales technician, there was no dysrhythmias noted. Patient had laboratory studies hemoglobin 13.9 creatinine today 1.49 up from 0.89. From patient's history and discussion she had Entresto and spironolactone added to her regimen along with continuing Lasix. She is not fluid overloaded. I suspect she is over diuresed. She is given 500 cc of fluid. She does report dyspnea, with EMS reporting her 85% on their arrival, she is not on any anticoagulants with confirmed history from patient of paroxysmal atrial fibrillation. A D-dimer was added which was elevated. Subsequent CTA chest obtained negative for PE. Her pulse ox remaining in the 90s on reevaluation. She is walking department in no respiratory distress. Covid testing obtained negative. Discussion with patient and her son in the room updated on likely issues with overdiuresis. She reported noting recurrent palpitations on reevaluation, her manager monitoring note heart rate mainly in the 80s. With her recent paroxysmal ventricular tachycardia and events in this past week she was concerned about going home. Therefore I spoke with hospitalist, Dr. Hoang, who will keep her as an observation to the PCU. Lab Data Attestation: I reviewed the patient's lab results. Labs: Laboratory Results - last 24 hr 05/13/21 05/13/21 05/13/21 21:30 21:30 21:30 WBC 12.1 H RBC 4.65 Hgb 13.9 Hct 41.9 MCV 90.1 MCH 29.9 MCHC 33.2 RDW Std Deviation 43.9 RDW Coeff of Bonifacio 13.5 Plt Count 281 MPV 10.8 Immature Gran % (Auto) 0.600 Neut % (Auto) 73.3 H Lymph % (Auto) 17.2 L Craig % (Auto) 7.2 Eos % (Auto) 1.2 Baso % (Auto) 0.5 Absolute Neuts (auto) 8.9 H Absolute Lymphs (auto) 2.08 Nucleated RBC % 0 PT INR APTT D-Dimer Quant (PE/DVT) 1.05 H* Sodium 137 Potassium 4.8 Chloride 103 Carbon Dioxide 25.0 Anion Gap 9 BUN 32 H Creatinine 1.49 H Estim Creat Clear Calc 34.30 Est GFR (MDRD) Af Amer 45 L Est GFR (MDRD) Non-Af 37 L BUN/Creatinine Ratio 21.5 H Glucose 122 H Calcium 8.6 Magnesium 2.5 05/13/21 21:30 WBC RBC Hgb Hct MCV MCH MCHC RDW Std Deviation RDW Coeff of Bonifacio Plt Count MPV Immature Gran % (Auto) Neut % (Auto) Lymph % (Auto) Craig % (Auto) Eos % (Auto) Baso % (Auto) Absolute Neuts (auto) Absolute Lymphs (auto) Nucleated RBC % PT 13.9 INR 1.1 APTT 28.8 D-Dimer Quant (PE/DVT) Sodium Potassium Chloride Carbon Dioxide Anion Gap BUN Creatinine Estim Creat Clear Calc Est GFR (MDRD) Af Amer Est GFR (MDRD) Non-Af BUN/Creatinine Ratio Glucose Calcium Magnesium Radiography Chest X-Ray - ED: 1 View, Read by ED Physician and Read by Radiologist Diagnostic Testing: Clinical Impression(s) from Imaging Studies Chest X-Ray 05/13/21 21:45 IMPRESSION: 1. Cardiomegaly and pulmonary edema. Electronically Signed: Adalberto Boyle DO at 23:16 EDT Tel , Service support , Chest CTA 05/13/21 22:31 IMPRESSION: No pulmonary embolism. Enlarged heart and left ventricular and left atrial enlargement with cardiogenic pulmonary edema. Pericardial effusion. Electronically Signed: Adalberto Boyle DO at 23:40 EDT Tel , Service support , EKG Initial EKG: Attestation: I personally reviewed and interpreted this EKG as follows: Comments: Paced rhythm rate of 70. Discharge Plan Dx/Rx/DC Orders Clinical Impression: Palpitation, Dyspnea, MAGNUS (acute kidney injury) Disposition Disposition: Acute Care Hospital [facility]
[2021-05-13 21:56] LABS: Absolute Lymphocyte Count 2.08 X10^3/uL (0.83-4.51); Absolute Neutrophil Count 8.9 X10^3/uL (2.0-7.7); Basophil# 0.06 X10^3/uL; Basophil% 0.5 % (0-1); Eosinophil# 0.14 X10^3/uL; Eosinophils% 1.2 % (0-5); Hematocrit 41.9 % (37-47); Hemoglobin 13.9 g/dL (12.0-15.0); Lymphocyte # 2.08 X10^3/ul (0.83-4.51); Lymphocyte % 17.2 % (19-41); Mean Corp Hgb Conc 33.2 g/dL (32-36); Mean Corpuscular Hgb 29.9 pg (27.0-32.0); Mean Corpuscular Volume 90.1 fL (81-99); Mean Platelet Vol. 10.8 fl (6.2-12.0); Monocyte# 0.87 X10^3/uL; Monocyte% 7.2 % (0-10); NRBC Flagged by Analyzer 0 % (0-5); Neutrophil # 8.88 X10^3/uL (2.7-7.7); Neutrophil % 73.3 % (47-70); Platelet Count 281 K/mm3 (150-450); RBC Distribution Width CV 13.5 % (11.6-14.6); RBC Distribution Width SD 43.9 fl (35.1-43.9); Red Blood Count 4.65 M/mm3 (4.2-5.4); White Blood Count 12.1 K/mm3 (4.4-11.0)
[2021-05-13 22:10] LABS: Anion Gap 9 (5-15); BUN 32 mg/dL (7-18); BUN/Creat Ratio 21.5 RATIO (10-20); Calcium,Total 8.6 mg/dL (8.5-10.1); Chloride 103 mmol/L (98-107); Creatinine, Serum 1.49 mg/dL (0.55-1.02); EST Glomerular Filtration Rate 37 mL/min (>60); Est Glom Filt Rate - Afr Amer 45 mL/min (>60); Glucose 122 mg/dL (74-106); Magnesium 2.5 mg/dL (1.6-2.6); Potassium 4.8 mmol/L (3.5-5.1); Sodium Level 137 mmol/L (136-145)
[2021-05-13 22:29] LABS: D-Dimer Quantitative (DVT/PE) 1.05 FEU/ug/m (0.27-0.49)
[2021-05-13 22:31] VITALS: PULSE 68; RESP 16; O2SAT 93
--- NOTE | 2021-05-13 22:31 | CT_ITS ---
STUDY: CTA CHEST REASON FOR EXAM: Female, 65 years old. dyspnea, elevated dimer RADIATION DOSAGE (If Supplied By Facility): CTDIvol = ( 12.18 ) mGy, DLP = ( 344.69 ) mGycm TECHNIQUE: The examination was performed with the intravenous administration of IV 75mL Isovue-370. Post-processing of the angiographic images was performed, with multiplanar reformation and 3D reconstruction. Individualized dose optimization techniques were used for this CT. COMPARISON: Chest x-ray 05/13/2021. FINDINGS: Quality exam with well-opacified pulmonary arteries and no motion artifact. Normal enhancement of the main pulmonary artery and right and left pulmonary arteries. Normal enhancement of the bilateral peripheral pulmonary arteries. There is no demonstrated pulmonary embolism. There is significant cardiomegaly with significant left ventricular left atrial enlargement. There is also a small pericardial effusion. There is central alveolar edema and interstitial opacities and mild peribronchial thickening highly suggestive of interstitial edema from heart failure. No pleural effusion. No pneumothorax. No nodule or mass. There are some scattered intimal calcifications of the proximal abdominal aorta. Thoracic aorta is normal diameter. Visualized portions upper abdomen included in [id number] within normal limits. Visualized base of the neck is within normal limits. No axillary lymphadenopathy. CT/CTA Chest W/WO Contrast IMPRESSION: No pulmonary embolism. Enlarged heart and left ventricular and left atrial enlargement with cardiogenic pulmonary edema. Pericardial effusion. Electronically Signed: Adalberto Boyle DO at 23:40 EDT Tel , Service support ,
[2021-05-13 23:44] LABS: International Normalized Ratio 1.1; Partial Thromboplast Time 28.8 Seconds (24.1-36.2); Prothrombin Time (Protime)PT. 13.9 SECONDS (11.7-14.9)
[2021-05-14] VITALS (10 sets, daily range): BP systolic 114–124; BP diastolic 56–87; PULSE 60–74; RESP 16–18; TEMP 36.6–37.1; O2SAT 94–97; BMI 24.0
--- NOTE | 2021-05-14 00:35 | PCM.HP.STD ---
HPI - General General Date of Admission: 05/14/21 Date of Service: 05/14/21 Chief Complaint: Palpitations HPI Narrative JUDIE COLMENARES, is a 65 F with a significant history of heart failure with reduced ejection fraction; arrhythmia and ICD who presents with palpitation that started on the same day of presentation. Patient felt that if she did not sit down she would have passed out. Associated with symptom is shortness of breath. Of note patient was at our hospital on 05/06/2021. Reportedly she passed out while at imaging. Because of tachyarrhythmia she was transferred to [facility]. Reportedly she was told that her defibrillator fired. At [facility] or upon discharge from [facility] she was started on new medications included Entresto; spironolactone and dapagliflozin. Also she was recently started on amiodarone. On this visit 05/13/2021 at the emergency department her ICD interrogation was unremarkable. The patient had elevation of her creatinine which ED doctor thought with holding Lasix patient could do well at home. However family was concerned about the arrhythmia and wanted patient to be observed overnight at the hospital. [facility] Medical History Cardiac defibrillator in place CHF (congestive heart failure) Irregular heart beat Home Medications furosemide 20 mg PO DAILY 05/06/21 [History Last Taken 05/05/21 10:00] potassium 99 mg PO DAILY 05/06/21 [History Last Taken 05/05/21 10:00] amiodarone 400 mg PO BID 05/13/21 [History Last Taken Unknown] carvedilol 6.25 mg PO BID 05/13/21 [History Last Taken Unknown] dapagliflozin [Farxiga] 10 mg PO DAILY 05/13/21 [History Last Taken Unknown] sacubitril-valsartan [Entresto] 1 tab PO BID 05/13/21 [History Last Taken Unknown] spironolactone 12.5 mg PO DAILY 05/13/21 [History Last Taken Unknown] Allergy/AdvReac Type Severity Reaction Status Date / Time antibiotic Allergy PT UNABLE Uncoded 05/05/21 20:31 TO RESPOND-NEEDS F/U Surgical History Pacemaker Social History housing: house number of children: 3 history of recent travel: No Smoking Status: Never smoker ROS ROS Narrative Constitutional: Denies fever, chills, fatigue, anorexia and change in weight Eyes: Denies blurry vision, change in eye color, change in vision, discharge from eye(s), double vision, erythema, eye pain, loss of vision or other HEENT: Denies abnormal hearing, dysphagia, ear pain, epistaxis, headache(s), hearing loss, nasal congestion, nasal discharge, post nasal drip, sinus pressure, sore throat or other Cardiovascular: Reports palpitations. Denies chest pain. Respiratory/Chest: Reports shortness of breath. Denies cough. Gastrointestinal: Denies abdominal pain, coffee ground emesis, constipation, diarrhea, dyspepsia, hematemesis, hematochezia, loose stools, melena, nausea, vomiting or other Genitourinary: Denies burning urination, difficulty urinating, dysuria, hematuria, nocturia, urinary frequency, urinary hesitancy, urinary incontinence, urinary urgency or other Musculoskeletal: Denies arthralgias, back pain, joint pain, joint stiffness, joint swelling, myalgias, neck pain or other Neurologic: Denies abnormal gait, abnormal speech, confusion, disequilibrium, dizziness, focal weakness, headache(s), numbness, paresthesias, seizure-like activity, seizures, syncope, tingling, tremor(s) or other Psychiatric: Denies anxiety, depression, homicidal ideation, suicidal ideation or other Endocrinology: Denies change in body appearance, cold intolerance, excessive sweating, heat intolerance, polydipsia, polyuria or other Hematologic/Lymphatic: Denies anemia, easy bleeding, easy bruising, lymphadenopathy or other Integumentary: Denies rashes Allergic/Immunologic: Denies rhinitis, hives, eczema, asthma or other Vital Signs Vital Signs Vital Signs: 05/13/21 21:22 05/13/21 21:32 05/13/21 22:31 Temperature 97.7 F L Temperature Source Oral Pulse Rate 81 68 Respiratory Rate 24 H 16 Respiratory Effort Normal Non-Labored Respiratory Depth Normal Respiratory Pattern Normal Blood Pressure 144/80 H Blood Pressure Mean 101 Pulse Ox 92 93 Oxygen Delivery Method Room Air Room Air Room Air 05/14/21 00:15 Temperature Temperature Source Pulse Rate 66 Respiratory Rate 18 Respiratory Effort Respiratory Depth Respiratory Pattern Blood Pressure 117/87 H Blood Pressure Mean 97 Pulse Ox 96 Oxygen Delivery Method Room Air Weight Weight: 69.8 kg Body Mass Index (BMI) 24.4 Physical Exam Narrative Physical exam: General: Well-nourished, well-developed. Head: Normocephalic, atraumatic, no tenderness Eyes: PERRLA, EOMI ENT, no trauma, moist mucous membranes, no rhinorrhea Neck: Nontender, full range of motion, no spinal tenderness, deformities, step-off CVS: Regular rate and rhythm. S1-S2 present. No murmur, gallop or rub. Respiratory : clear to auscultation bilaterally, chest wall nontender, no wheezing Abdomen: Soft, nontender, nondistended, normal bowel sounds, no masses : Deferred Back: Nontender, no CVA tenderness, no midline spinal tenderness, deformities, step-offs Extremities: Nontender full range of motion, no trauma Skin: Normal color, no trauma, abrasions Neuro: Alert, oriented, cranial nerves II through XII grossly intact. Psychiatry: Normal mood. Normal affect. Not depressed. Not anxious. Results Lab / Micro Data Result Diagrams: 05/13/21 21:30 05/13/21 21:30 Labs: Laboratory Results - last 24 hr 05/13/21 21:30: WBC 12.1 H, RBC 4.65, Hgb 13.9, Hct 41.9, MCV 90.1, MCH 29.9, MCHC 33.2, RDW Std Deviation 43.9, RDW Coeff of Bonifacio 13.5, Plt Count 281, MPV 10.8, Immature Gran % (Auto) 0.600, Neut % (Auto) 73.3 H, Lymph % (Auto) 17.2 L, Alexander % (Auto) 7.2, Eos % (Auto) 1.2, Baso % (Auto) 0.5, Absolute Neuts (auto) 8.9 H, Absolute Lymphs (auto) 2.08, Nucleated RBC % 0 05/13/21 21:30: Sodium 137, Potassium 4.8, Chloride 103, Carbon Dioxide 25.0, Anion Gap 9, BUN 32 H, Creatinine 1.49 H, Estim Creat Clear Calc 34.30, Est GFR (MDRD) Af Amer 45 L, Est GFR (MDRD) Non-Af 37 L, BUN/Creatinine Ratio 21.5 H, Glucose 122 H, Calcium 8.6, Magnesium 2.5 05/13/21 21:30: D-Dimer Quant (PE/DVT) 1.05 H* 05/13/21 21:30: PT 13.9, INR 1.1, APTT 28.8 Micro: Microbiology 05/13/21 23:37 Nasal Secretion SARS-CoV-2 Antigen (Rapid) - Final Radiology Impression Chest X-Ray 05/13/21 21:45 IMPRESSION: 1. Cardiomegaly and pulmonary edema. Electronically Signed: Adalberto Boyle DO at 23:16 EDT Tel , Service support , Chest CTA 05/13/21 22:31 IMPRESSION: No pulmonary embolism. Enlarged heart and left ventricular and left atrial enlargement with cardiogenic pulmonary edema. Pericardial effusion. Electronically Signed: Adalberto Boyle DO at 23:40 EDT Tel , Service support , Assessment & Plan Assessment/Plan (1) Palpitation: (2) MAGNUS (acute kidney injury): (3) CHF (congestive heart failure): QUALIFIERS: Heart failure chronicity: chronic Heart failure type: systolic Qualified Code(s): I50.22 - Chronic systolic (congestive) heart failure PLAN: Palpitations ICD was interrogated at the emergency department. No dysrhythmia found. EKG personally interpreted showed atrial paced rhythm. Check magnesium. Hold home potassium supplementation. Trend BMP. Observe at the progressive care unit. MAGNUS Creatinine presentation is 1.49. Creatinine on 05/05/2021. Patient reported she has been on Lasix for several years. Likely MAGNUS from Entresto and Aldactone. Hold Entresto and Aldactone at this time. Hold Lasix. Trend BMP and consider restarting guideline directed medications for heart failure with reduced ejection fraction soon as possible. Received normal saline 500 mL bolus at the emergency department. Trend BMP. Heart failure with reduced ejection fraction. Chronic and stable. D-dimer was elevated. Radiologist impression of chest CTA as above. Actual CTA image was independently interpreted and I agree with radiologist interpretation of cardiogenic pulmonary edema. Likely cardiogenic pulmonary edema is chronic and stable. Also patient with small pericardial effusion Echocardiogram on 05/06/2021 showed ejection fraction of 10%. Pulmonary artery systolic pressure was 40. Moderate mitral valve insufficiency noted. DVT prophylaxis: Lovenox ordered. Charges/Coding Visit Charges OBSV E&M: 88135 Initial observation care L3
--- NOTE | 2021-05-14 01:03 | PCS.PANDOC ---
PANDEMIC DOCUMENTATION INITIATED: Date: 03/03/2021 Time: 190
[2021-05-14 06:55] LABS: Absolute Neutrophil Count 8.9 X10^3/uL (2.0-7.7); Basophil# 0.04 X10^3/uL; Basophil% 0.3 % (0-1); Eosinophil# 0.09 X10^3/uL; Eosinophils% 0.7 % (0-5); Hematocrit 37.3 % (37-47); Hemoglobin 12.6 g/dL (12.0-15.0); Lymphocyte % 17.4 % (19-41); Mean Corp Hgb Conc 33.8 g/dL (32-36); Mean Corpuscular Hgb 30.1 pg (27.0-32.0); Mean Corpuscular Volume 89.2 fL (81-99); Mean Platelet Vol. 10.3 fl (6.2-12.0); Monocyte# 0.89 X10^3/uL; Monocyte% 7.4 % (0-10); NRBC Flagged by Analyzer 0 % (0-5); Neutrophil # 8.88 X10^3/uL (2.7-7.7); Neutrophil % 73.7 % (47-70); Platelet Count 224 K/mm3 (150-450); RBC Distribution Width CV 13.6 % (11.6-14.6); RBC Distribution Width SD 44.2 fl (35.1-43.9); Red Blood Count 4.18 M/mm3 (4.2-5.4); White Blood Count 12.1 K/mm3 (4.4-11.0)
[2021-05-14 07:38] LABS: Anion Gap 8 (5-15); BUN 24 mg/dL (7-18); Calcium,Total 8.2 mg/dL (8.5-10.1); Chloride 109 mmol/L (98-107); EST Glomerular Filtration Rate 59 mL/min (>60); Est Glom Filt Rate - Afr Amer 71 mL/min (>60); Estimated Creatinine Clearance 51.11 ml/min; Glucose 102 mg/dL (74-106); Potassium 4.1 mmol/L (3.5-5.1); Sodium Level 139 mmol/L (136-145)
[2021-05-14] MEDS: Carvedilol 6.25 MG Tablet PO (10:30)
[2021-05-14] MEDS: Amiodarone 200 MG Tablet 400 MG PO (10:30)
[2021-05-14] MEDS: Enoxaparin 40 MG/0.4 ML Syringe SC (10:30)
[2021-05-14] MEDS: Empagliflozin 25 MG Tablet PO (10:30)
--- NOTE | 2021-05-14 12:12 | PN.HOSP_ITS ---
Subjective Subjective Patient seen and examined. Denies further palpitations, denies syncope. Reports general nonspecific complaints including mild abdominal pressure sensation. Objective Data Objective Data Vital Signs: Vital Signs Temp Pulse Resp BP Pulse Ox 98.4 F 66 16 117/59 L 95 05/14/21 10:31 05/14/21 10:31 05/14/21 10:31 05/14/21 10:31 05/14/21 10:31 Oxygen Delivery Method Room Air Weight: 148 lb 9.465 oz Body Mass Index (BMI) 24.0 Intake & Output: Intake and Output for Last 24 Hours 05/12/21 05/13/21 05/14/21 23:59 23:59 23:59 Intake Total 500 / 500 120 / 120 Balance 500 / 500 120 / 120 Lab / Micro Data Result Diagrams: 05/14/21 06:10 05/14/21 06:10 Labs: Laboratory Results - last 24 hr 05/13/21 21:30: WBC 12.1 H, RBC 4.65, Hgb 13.9, Hct 41.9, MCV 90.1, MCH 29.9, MCHC 33.2, RDW Std Deviation 43.9, RDW Coeff of Bonifacio 13.5, Plt Count 281, MPV 10.8, Immature Gran % (Auto) 0.600, Neut % (Auto) 73.3 H, Lymph % (Auto) 17.2 L, [place] % (Auto) 7.2, Eos % (Auto) 1.2, Baso % (Auto) 0.5, Absolute Neuts (auto) 8.9 H, Absolute Lymphs (auto) 2.08, Nucleated RBC % 0 05/13/21 21:30: Sodium 137, Potassium 4.8, Chloride 103, Carbon Dioxide 25.0, Anion Gap 9, BUN 32 H, Creatinine 1.49 H, Estim Creat Clear Calc 34.30, Est GFR (MDRD) Af Amer 45 L, Est GFR (MDRD) Non-Af 37 L, BUN/Creatinine Ratio 21.5 H, Glucose 122 H, Calcium 8.6, Magnesium 2.5 05/13/21 21:30: D-Dimer Quant (PE/DVT) 1.05 H* 05/13/21 21:30: PT 13.9, INR 1.1, APTT 28.8 05/13/21 21:30: Magnesium Cancelled 10/27/21 06:10: WBC 12.1 H, RBC 4.18 L, Hgb 12.6, Hct 37.3, MCV 89.2, MCH 30.1, MCHC 33.8, RDW Std Deviation 44.2 H, RDW Coeff of Bonifacio 13.6, Plt Count 224, MPV 10.3, Immature Gran % (Auto) 0.500, Neut % (Auto) 73.7 H, Lymph % (Auto) 17.4 L, [place] % (Auto) 7.4, Eos % (Auto) 0.7, Baso % (Auto) 0.3, Absolute Neuts (auto) 8.9 H, Absolute Lymphs (auto) 2.10, Nucleated RBC % 0 05/14/21 06:10: Sodium 139, Potassium 4.1, Chloride 109 H, Carbon Dioxide 22.0, Anion Gap 8, BUN 24 H, Creatinine 1.00, Estim Creat Clear Calc 51.11, Est GFR (MDRD) Af Amer 71, Est GFR (MDRD) Non-Af 59 L, BUN/Creatinine Ratio 24.0 H, Glucose 102, Calcium 8.2 L Micro: Microbiology 05/13/21 23:37 Nasal Secretion SARS-CoV-2 Antigen (Rapid) - Final Radiography Diagnostic Testing: Radiology Impression Chest X-Ray 05/13/21 21:45 IMPRESSION: 1. Cardiomegaly and pulmonary edema. Electronically Signed: Adalberto Boyle DO at 23:16 EDT Tel , Service support , Chest CTA 05/13/21 22:31 IMPRESSION: No pulmonary embolism. Enlarged heart and left ventricular and left atrial enlargement with cardiogenic pulmonary edema. Pericardial effusion. Electronically Signed: Adalberto Boyle DO at 23:40 EDT Tel , Service support , Physical Exam Const alert, oriented x3 and no apparent distress Orientation / Consciousness: awake, oriented to person, oriented to place and oriented to time HEENT normocephalic and moist oral mucous membranes Eyes PERRL, EOMs intact bilaterally and conjunctivae normal Neck no lymphadenopathy Resp normal respiratory effort and clear to auscultation bilaterally Cardio regular rate, regular rhythm and no murmurs Peripheral Pulses: pulses 2+ throughout GI normal to inspection, nondistended, normoactive bowel sounds, non-tender and non-distended Extremity normal to inspection Skin no rashes or lesions noted Lesions: no lesions Rashes: no rashes Trauma: no lacerations or abrasions Neuro CN's II-XII intact bilaterally, no focal motor deficits, no sensory deficits noted and deep tendon reflexes 2+ bilaterally Psych mental status grossly normal and affect normal Assessment & Plan Assessment/Plan (1) MAGNUS (acute kidney injury): (2) Syncope and collapse: PLAN: History of nonischemic cardiomyopathy status post LOGISTICS/SHIPPER/ICD/dilated cardiomyopathy-EF 10 to 15% since 2019. Recently initiated on Entresto at [facility]. Ventricular tachycardia-Reported ICD shock 05/05/2021 per [facility] records. No further known episodes. Placed on amiodarone and was prescribed 400 mg twice daily for 2 weeks then 400 mg daily. Refer to MCKENNA Ellison. Nonobstructive CAD per heart cath 2012-not on aspirin, statin. Hypertension-continue carvedilol, Entresto. DC Lasix. Type 2 diabetes mellitus-on Farxiga. DVT prophylaxis-Lovenox subcu This patient was seen by DIAN Izaguirre under the supervision of Dr. Polk.
--- NOTE | 2021-05-14 12:50 | PCM.DC ---
Discharge Instructions Diet Discharge Diet: Low fat / Low cholesterol, 8 Cup Fluid Restriction and 2000 mg Sodium Diet Activity Discharge Activity: Return to Normal Activity Dressing / Incision Call your doctor if you observe: Shortness of breath, Dizziness, Chest pain and Increased palpitations (irregular heartbeat) Follow Up Care Test Results: Test results from this visit will be discussed in further detail at your follow-up appointment, if applicable. Discharge Plan Admission Admit Date/Time: 05/14/21 00:29 Primary Reason for Your Visit: Palpitations Attending Provider: Villa Polk Primary Care Provider: Care Physician,No Primary Instructions Additional Instructions / Restrictions: Follow-up with cardiology, Dr. Weaver in 1 week as well as Dr. Romero, electrophysiology in 1 to 2 weeks or as previously scheduled. You will need repeat BMP within 1 week by primary care provider or cardiology to reassess kidney function. Discharge Orders/Prescriptions Prescriptions: Continued potassium 99 mg Tablet 99 mg PO DAILY RF: 0 furosemide 20 mg tablet 20 mg PO DAILY RF: 0 carvedilol 6.25 mg tablet 6.25 mg PO BID RF: 0 spironolactone 25 mg tablet 12.5 mg PO DAILY RF: 0 amiodarone 400 mg tablet 400 mg PO BID RF: 0 Farxiga 10 mg tablet 10 mg PO DAILY RF: 0 Entresto 24-26 mg tablet 1 tab PO BID RF: 0 Referrals / Follow Up: Cardiology, Primary [Other] - In 1 Week Care Physician,No Primary [Primary Care Provider] - In 1 Week Disposition Disposition (needs filled in before D/C Order can be placed): Home, Self Care
--- NOTE | 2021-05-14 12:55 | PCM.DC.SUM ---
Documented by User: Yoly Montanez NP, STICKER MACHINE OPERATOR-C 05/14/21 13:04 Providers Date of Admission: 05/14/21 Date of Discharge: 05/14/21 Primary Care Physician: No Primary Care Phys Reason For Visit: PALPATATIONS, MAGNUS Diagnosis Discharge Diagnosis (1) MAGNUS (acute kidney injury): Status: Acute Code(s): N17.9 - Acute kidney failure, unspecified (2) Syncope and collapse: Status: Acute Code(s): R55 - Syncope and collapse Medications at Discharge Home Medications furosemide 20 mg PO DAILY 05/06/21 potassium 99 mg PO DAILY 05/06/21 Entresto 1 tab PO BID 05/13/21 Farxiga 10 mg PO DAILY 05/13/21 amiodarone 400 mg PO BID 05/13/21 carvedilol 6.25 mg PO BID 05/13/21 spironolactone 12.5 mg PO DAILY 05/13/21 Hospital Course Operations None Procedures None Summary of Care Provided Minutes Spent on Discharge: 35 Hospital Course: Patient is a 65-year-old female admitted 05/14/2021 due to palpitations. 1. Acute kidney injury-resolved. We will continue low-dose Lasix and Aldactone at discharge given EF 10%. Repeat BMP within 1 week by primary care provider or cardiology to reassess kidney function. Follow-up with PCP and cardiology in 1 week. 2. Palpitations with history of ventricular tachycardia-Reported ICD shock 05/05/2021 per [facility] records. No further known episodes. Placed on amiodarone and was prescribed 400 mg twice daily for 2 weeks then 400 mg daily. Referred to [facility]CKEN[facility] Ellison. ICD interrogated 05/13/2021 in the ED with no found arrhythmias. EKG atrial paced. Electrolytes within normal limits. Monitor telemetry overnight with no episodes of V. tach. Follow-up with EP in 1 to 2 weeks and continue previously prescribed amiodarone. 3. 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 Recently initiated on Entresto at [facility]. 4. Nonobstructive CAD per heart cath 2012-not on aspirin, statin. Follow-up with cardiology. Follows with Dr. Weaver in [place]. 5. Hypertension-continue carvedilol, Entresto, Lasix, Aldactone. 6. Type 2 diabetes mellitus-on [facility]an [facility]. Patient seen and examined prior to discharge. Physical assessment as noted below. Patient is stable for discharge with follow up recommendations as noted above. This patient was seen by DIAN Izaguirre under the supervision of Dr. Polk. Physical Exam Const alert, oriented x3 and no apparent distress Orientation / Consciousness: awake, oriented to person, oriented to place and oriented to time HEENT normocephalic and moist oral mucous membranes Eyes PERRL, EOMs intact bilaterally and conjunctivae normal Neck no lymphadenopathy Resp normal respiratory effort and clear to auscultation bilaterally Cardio regular rate, regular rhythm and no murmurs Cardio Narrative: Paced Peripheral Pulses: pulses 2+ throughout GI normal to inspection, nondistended, normoactive bowel sounds, non-tender and non-distended Extremity normal to inspection Skin no rashes or lesions noted Lesions: no lesions Rashes: no rashes Trauma: no lacerations or abrasions Neuro CN's II-XII intact bilaterally, no focal motor deficits, no sensory deficits noted and deep tendon reflexes 2+ bilaterally Psych mental status grossly normal and affect normal Weight / BMI Weight Weight: 148 lb 9.465 oz Body Mass Index (BMI) 24.0 ABG / Lab / Microbiology Data Result Diagrams: 05/14/21 06:10 05/14/21 06:10 Laboratory: Laboratory Results - last 24 hr 05/13/21 21:30: WBC 12.1 H, RBC 4.65, Hgb 13.9, Hct 41.9, MCV 90.1, MCH 29.9, MCHC 33.2, RDW Std Deviation 43.9, RDW Coeff of Bonifacio 13.5, Plt Count 281, MPV 10.8, Immature Gran % (Auto) 0.600, Neut % (Auto) 73.3 H, Lymph % (Auto) 17.2 L, [place] % (Auto) 7.2, Eos % (Auto) 1.2, Baso % (Auto) 0.5, Absolute Neuts (auto) 8.9 H, Absolute Lymphs (auto) 2.08, Nucleated RBC % 0 05/13/21 21:30: Sodium 137, Potassium 4.8, Chloride 103, Carbon Dioxide 25.0, Anion Gap 9, BUN 32 H, Creatinine 1.49 H, Estim Creat Clear Calc 34.30, Est GFR (MDRD) Af Amer 45 L, Est GFR (MDRD) Non-Af 37 L, BUN/Creatinine Ratio 21.5 H, Glucose 122 H, Calcium 8.6, Magnesium 2.5 05/13/21 21:30: D-Dimer Quant (PE/DVT) 1.05 H* 05/13/21 21:30: PT 13.9, INR 1.1, APTT 28.8 05/13/21 21:30: Magnesium Cancelled 05/14/21 06:10: WBC 12.1 H, RBC 4.18 L, Hgb 12.6, Hct 37.3, MCV 89.2, MCH 30.1, MCHC 33.8, RDW Std Deviation 44.2 H, RDW Coeff of Bonifacio 13.6, Plt Count 224, MPV 10.3, Immature Gran % (Auto) 0.500, Neut % (Auto) 73.7 H, Lymph % (Auto) 17.4 L, [place] % (Auto) 7.4, Eos % (Auto) 0.7, Baso % (Auto) 0.3, Absolute Neuts (auto) 8.9 H, Absolute Lymphs (auto) 2.10, Nucleated RBC % 0 05/14/21 06:10: Sodium 139, Potassium 4.1, Chloride 109 H, Carbon Dioxide 22.0, Anion Gap 8, BUN 24 H, Creatinine 1.00, Estim Creat Clear Calc 51.11, Est GFR (MDRD) Af Amer 71, Est GFR (MDRD) Non-Af 59 L, BUN/Creatinine Ratio 24.0 H, Glucose 102, Calcium 8.2 L Microbiology: Microbiology 05/13/21 23:37 Nasal Secretion SARS-CoV-2 Antigen (Rapid) - Final Radiography Diagnostic Testing: Radiology Impression Chest X-Ray 05/13/21 21:45 IMPRESSION: 1. Cardiomegaly and pulmonary edema. Electronically Signed: Adalberto Boyle DO at 23:16 EDT Tel , Service support , Chest CTA 05/13/21 22:31 IMPRESSION: No pulmonary embolism. Enlarged heart and left ventricular and left atrial enlargement with cardiogenic pulmonary edema. Pericardial effusion. Electronically Signed: Adalberto DO [place] at 23:40 EDT Tel , Service support , D/C Instructions Discharge Diet: Low fat / Low cholesterol, 8 Cup Fluid Restriction and 2000 mg Sodium Diet Call your doctor if you observe: Shortness of breath, Dizziness, Chest pain and Increased palpitations (irregular heartbeat) Meaningful Use Info Meaningful Use Diagnoses (Choose all that apply): None applicable Discharge Plan Admission Admit Date/Time: 05/14/21 00:29 Primary Reason for Your Visit: Palpitations Attending Provider: Villa Polk Primary Care Provider: Care Physician,No Primary Instructions Additional Instructions / Restrictions: Follow-up with cardiology, Dr. Weaver in 1 week as well as Dr. Romero, electrophysiology in 1 to 2 weeks or as previously scheduled. You will need repeat BMP within 1 week by primary care provider or cardiology to reassess kidney function. Discharge Orders/Prescriptions Prescriptions: Continued potassium 99 mg Tablet 99 mg PO DAILY RF: 0 furosemide 20 mg tablet 20 mg PO DAILY RF: 0 carvedilol 6.25 mg tablet 6.25 mg PO BID RF: 0 spironolactone 25 mg tablet 12.5 mg PO DAILY RF: 0 amiodarone 400 mg tablet 400 mg PO BID RF: 0 Farxiga 10 mg tablet 10 mg PO DAILY RF: 0 Entresto 24-26 mg tablet 1 tab PO BID RF: 0 Referrals / Follow Up: Cardiology, Primary [Other] - In 1 Week Care Physician,No Primary [Primary Care Provider] - In 1 Week Disposition Disposition (needs filled in before D/C Order can be placed): Home, Self Care Documented by User: Dr. Villa Polk MD 05/14/21 14:48 Providers Date of Admission: 05/14/21 Reason For Visit: PALPATATIONS, MAGNUS Medications at Discharge Home Medications furosemide 20 mg PO DAILY 05/06/21 potassium 99 mg PO DAILY 05/06/21 Entresto 1 tab PO BID 05/13/21 Farxiga 10 mg PO DAILY 05/13/21 amiodarone 400 mg PO BID 05/13/21 carvedilol 6.25 mg PO BID 05/13/21 spironolactone 12.5 mg PO DAILY 05/13/21 ABG / Lab / Microbiology Data Result Diagrams: 05/14/21 06:10 05/14/21 06:10 Discharge Plan Admission Admit Date/Time: 05/14/21 00:29 Primary Reason for Your Visit: Palpitations Attending Provider: Villa Polk Primary Care Provider: Care Physician,No Primary Instructions Additional Instructions / Restrictions: Follow-up with cardiology, Dr. Weaver in 1 week as well as Dr. Romero, electrophysiology in 1 to 2 weeks or as previously scheduled. You will need repeat BMP within 1 week by primary care provider or cardiology to reassess kidney function. Discharge Orders/Prescriptions Prescriptions: Continued potassium 99 mg Tablet 99 mg PO DAILY RF: 0 furosemide 20 mg tablet 20 mg PO DAILY RF: 0 carvedilol 6.25 mg tablet 6.25 mg PO BID RF: 0 spironolactone 25 mg tablet 12.5 mg PO DAILY RF: 0 amiodarone 400 mg tablet 400 mg PO BID RF: 0 Farxiga 10 mg tablet 10 mg PO DAILY RF: 0 Entresto 24-26 mg tablet 1 tab PO BID RF: 0 Referrals / Follow Up: Cardiology, Primary [Other] - In 1 Week Care Physician,No Primary [Primary Care Provider] - In 1 Week Disposition Disposition (needs filled in before D/C Order can be placed): Home, Self Care Charges/Coding Addendum Addendum: Dr. Polk: I personally reviewed the chart and examined the patient, and agree with the above findings. Six 5-year-old female who presented to the hospital with palpitations. She had recently presented to this hospital with similar presentation of palpitations as well as passing out. She had an echo at that time it demonstrated an EF of 10% was transferred to [facility]. For extensive testing up there but was noted to have this EF of 10% for at least 2 years. Her last cath in 2012 demonstrated clean coronary arteries. She was started on new medications including Entresto and was told to follow-up with her claims administrator. She denies any palpitations here, her ICD pacemaker was evaluated and seems to be functioning well. Plan will be to discharge home on her current medication regimen, her MAGNUS is resolved so she can resume her Lasix, and I do recommend that she follow-up with her PCP as well as her claims administrator within the next 7 days. I discussed with her the plan for discharge and she expressed understanding risk benefits of going home and is okay with going home today. Visit Charges OBSV E&M: 31413 Observation care discharge
--- NOTE | 2021-05-14 14:32 | PHA.DC.MR ---
Pharmacy Service has performed discharge medication reconciliation for this patient. The patient's discharge medication list was reviewed for discrepancies and discrepancies were resolved. Home Medications furosemide 20 mg PO DAILY 05/06/21 potassium 99 mg PO DAILY 05/06/21 Entresto 1 tab PO BID 05/13/21 Farxiga 10 mg PO DAILY 05/13/21 amiodarone 400 mg PO BID 05/13/21 carvedilol 6.25 mg PO BID 05/13/21 spironolactone 12.5 mg PO DAILY 05/13/21
--- NOTE | 2021-05-14 16:25 | CHAPLAIN ---
Type of Pastoral Visit _x__ Initial Visit ___ Follow-up Visit ___ On-call Visit ___ General Patient Visit ___ Spiritual Assessment ___ Family Conference ___ Bereavement ___ Rapid Response ___ Code Blue ___ Other (describe below) Pastoral Care Referral From _x__ Patient ___ Family ___ Nurse ___ Physician ___ Student Ministries Director ___ Retail Helper ___ Other (describe below) Sacrament/Intervention _x__ Active listening ___ Anointing ___ Spiritism ___ Bereavement ___ Communion ___ Melisa exploration ___ ___ Life review ___ Prayer ___ Reconciliation ___ Sacrament of Sick ___ Supportive presence ___ Wedding ___ Other (describe below) Pastoral Comments patient is waiting for decisions and tests results; pt is hopeful about going home today; son of pt is with her for support; no other needs noted
== END 2021-05-14 17:06 | disposition home or self-care (01) ==
LOC: ED 05-14 00:31 → PCU 05-14 00:44
PROVIDERS: Admitting Provider Hospitalist; Emergency Provider Emergency Medicine; Visit Provider Family Medicine
DX: N17.9 Acute kidney failure, unspecified (principal); I48.0 Paroxysmal atrial fibrillation; R55 Syncope and collapse; I47.2 Ventricular tachycardia; I50.22 Chronic systolic (congestive) heart failure; Z79.899 Other long term (current) drug therapy; Z95.810 Presence of automatic (implantable) cardiac defibrillator; I34.0 Nonrheumatic mitral (valve) insufficiency; I42.0 Dilated cardiomyopathy; I25.10 Atherosclerotic heart disease of native coronary artery without angina pectoris; Z79.84 Long term (current) use of oral hypoglycemic drugs; E11.9 Type 2 diabetes mellitus without complications; I11.0 Hypertensive heart disease with heart failure
CPT/HCPCS: 36415; 71045; 71275; 80048; 83735; 85025; 85379; 85610; 85730; 87426; 93005; 96360; 96372; 99218; 99285; J7040; Q9967; A4216; G0378

== ENCOUNTER 2023-02-01 07:07 | Day surgery (SDC) | payer MEDICARE, OTHER, SELFPAY ==
--- NOTE | 2023-02-01 | IMM_PTH ---
PATIENT: JUDIE COLMENARES LOC: [facility] [place] U#:[id number] AGE/SX: 67/F ROOM: RE02/01/[address]: Dr. Syd Pino MD : 1955 BED: DIS: 02/01/2023 SPEC #: [id number] RECD: 02/02/23 13:44 STATUS: ARLENE REQ #: [id number] JEANETTE: 02/01/23 00:[address]: Syd Pino DEPT: IMMUNOHISTOCHEMISTRY RECD BY: Vicki Ham ENTERED: 02/02/23 13:47 SP TYPE: IMMUNO OTHR DR: Dr. Dusty Chen, Tissues: J - Skin of face, NOS Procedures: SMA (add) CD31 (add) CD34 (add) DESMIN (add) KI-67 (add) FACTOR VIII (add) MELAN-A (add) Vimentin (initial) S-100 (add) PHYSICIAN [facility] INSTIT[facility] [address] [address] SPECIMEN INFORMATION: Tissue Source: J - Right chin lesion Clinical Info: Skin lesion of right chin Specimen Number: [id number] J CPT code: 95961, 76253 x8 METHODOLOGY: Deparaffinized sections of prefer/formalin-fixed tissue or PAP/DQ stained slides are incubated with monoclonal/polyclonal antibodies/oligonucleotide probes. Localization is made via biotin free immunoperoxidase method. Appropriate controls are performed and reacted as expected. Results on target cell population are indicated in the following table: RESULTS: ANTIBODY / CLONE RESULT Block J Vimentin (V9) positive CD31 (SAMSON/70A) negative Factor VIII (R Ag) negative CD34 (QBEnd-10) negative Actin (1A4) negative Desmin (CE-R-11) negative Melan A (A103) positive, focal S-100 (4C4.9) positive, diffuse Ki-67 (30-9) positive, low These tests were developed and their performance characteristics determined by [facility]. They may not have been cleared or approved by the U.S. Food and Drug Administration. The FDA has determined that such clearance or approval is not necessary. The above immunohistochemical/dualISH markers are ordered and reviewed by the Pathologist. 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 SJ:pasha 02/02/2023 Case has been reviewed in consultation with Dr. Trammell who concurs with the above diagnosis. IDC:AM
--- NOTE | 2023-02-01 | LES_PTH ---
PATIENT: JUDIE COLMENARES LOC: [facility] [place] U#:[id number] AGE/SX: 67/F ROOM: RE02/01/[address]: Dr. Syd Pino MD : 1955 BED: DIS: 02/01/2023 SPEC #: [id number] RECD: 02/01/23 09:09 STATUS: ARLENE ESTEFANIA #: [id number] JEANETTE: 02/01/23 00:[address]: Syd Pino DEPT: SURGICAL PATHOLOGY RECD BY: Vicki Ham ENTERED: 02/01/23 10:21 SP TYPE: Lesion OTHR DR: Dr. 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; skin lesion of right chin and forehead TISSUE SUBMITTED: A - Right ear lesion, short stitch - superior at 12 o'clock, long stitch - medial at 3 o'clock, FS, B - Forehead lesion, long stitch - medial, short stitch - superior, FS, C - Additional inferior margin right ear, FS, D - Additional superior margin right ear, FS, E - Additional medial margin forehead, FS, F - Second additional superior margin right ear, FS, G - Third additional superior margin right ear, FS, H - Fourth additional superior margin right ear, FS, I - Fifth additional superior margin right ear, FS, J??Right chin lesion FROZEN SECTION DIAGNOSIS A. Right ear lesion, biopsy: Basal cell carcinoma, superior and inferior margin positive for carcinoma. B. Forehead lesion, biopsy: Basal cell carcinoma, 3 o'clock margin (medial), very close to the tumor. C. Additional inferior margin, right ear: Negative for carcinoma. D. Additional superior margin, right ear: Positive for basal cell carcinoma. E. Additional medial margin, forehead lesion: Negative for carcinoma. F. Second additional superior margin, right ear: Positive for basal cell carcinoma. SJ: 02/01/2023 G. Third additional superior margin, right ear: Minute foci of basal cell carcinoma on first and fifth level of frozen section. H. Fourth additional superior margin, right ear: Positive for basal cell carcinoma. I. Fifth additional superior margin, right ear: Negative for carcinoma. SJ: 02/01/2023 G, H, I. Case has been reviewed in consultation with Dr. Trammell who concurs with the above diagnosis. IDC:AM MICROSCOPIC DIAGNOSIS A. Right ear lesion, biopsy: Basal cell carcinoma. Solar elastosis. See comment. B. Forehead lesion, biopsy: Basal cell carcinoma. See comment. C. Additional inferior margin, right ear: Negative for carcinoma. Solar elastosis. D. Additional superior margin, right ear: Positive for basal cell carcinoma. Extensive solar elastosis. E. Additional medial margin, forehead lesion: Negative for carcinoma. F. Second additional superior margin, right ear: Positive for basal cell carcinoma. Extensive solar elastosis. G. Third additional superior margin, right ear: Minute foci of basal cell carcinoma on first and fifth level of frozen section slides. Extensive solar elastosis. See comment. H. Fourth additional superior margin, right ear: Positive for basal cell carcinoma. I. Fifth additional superior margin, right ear: Positive for basal cell carcinoma. Extensive solar elastosis. See comment. J. Right chin lesion, excisional biopsy: Consistent with neurotized intradermal nevus. See comment. SJ:rg 02/02/2023 COMMENT A. Superior and inferior margins are positive for carcinoma. B. The 3 o'clock (medial) margin is positive for carcinoma. G. Permanent slides submitted are negative for basal cell carcinoma. I. Basal cell carcinoma is only noted on permanent H&E slides. Frozen section slides are reviewed again and are negative for carcinoma. J. Immunohistochemistry ([id number]) supports the above diagnosis. Case has been reviewed in consultation with Dr. Trammell who concurs with the above diagnosis. IDC:AM MICROSCOPIC DESCRIPTION Slides are reviewed. GROSS DESCRIPTION A - Received fresh for frozen section diagnosis labeled with the patient's name is a specimen designated right ear lesion. The specimen consists of a wedge-shaped piece of mckeon-white skin measuring 1.0 x 1.0 x 0.5 cm. The specimen is oriented as follow: short stitch - superior at 12 o'clock, long stitch - medial at 3 o'clock. The specimen is inked as follows: superior margin - black, inferior margin - blue and 3 o'clock tip??yellow. The specimen is bisected and submitted entirely for frozen section diagnosis in one cassette. B - Received fresh for frozen section diagnosis labeled with the patient's name is a specimen designated forehead lesion. The specimen consists of a piece of mckeon-white skin ellipse measuring 1.0 x 0.7 x 0.2 cm. The specimen is oriented as follow: long stitch - medial, short stitch - superior. The specimen is inked as follows: superior tip - yellow, inferior tip - green, 3 o'clock medial margin - black and 9 o'clock lateral margin - blue. The specimen is serially sectioned and submitted entirely for frozen section diagnosis in one cassette. C - Received fresh for frozen section diagnosis labeled with the patient's name is a specimen designated additional inferior margin right ear. The specimen consists of a piece of mckeon-white skin measuring 0.6 x 0.6 x 0.2 cm. The entire specimen is submitted in one cassette for frozen section diagnosis. D - Received fresh for frozen section diagnosis labeled with the patient's name is a specimen designated additional superior margin right ear. The specimen consists of a piece of mckeon-white skin measuring 0.6 x 0.5 x 0.2 cm. The entire specimen is submitted in one cassette for frozen section diagnosis. E - Received fresh for frozen section diagnosis labeled with the patient's name is a specimen designated additional medial margin from forehead. The specimen consists of a piece of mckeon-white skin measuring 0.4 x 0.4 x 0.2 cm. The entire specimen is submitted in one cassette for frozen section diagnosis. F - Received fresh for frozen section diagnosis labeled with the patient's name is a specimen designated second additional superior margin right ear. The specimen consists of a piece of mckeon-white skin measuring 0.8 x 0.5 x 0.2 cm. The entire specimen is submitted in one cassette for frozen section diagnosis. G - Received fresh for frozen section diagnosis labeled with the patient's name is a specimen designated third additional superior margin right ear. The specimen consists of a piece of mckeon-white skin measuring 0.6 x 0.2 x 0.1 cm. The entire specimen is submitted in one cassette for frozen section diagnosis. H - Received fresh for frozen section diagnosis labeled with the patient's name is a specimen designated fourth additional superior margin right ear. The specimen consists of a piece of mckeon-white skin measuring 0.5 x 0.2 x 0.1 cm. The entire specimen is submitted in one cassette for frozen section diagnosis. I - Received fresh for frozen section diagnosis labeled with the patient's name is a specimen designated fifth additional superior margin right ear. The specimen consists of a piece of mckeon-white skin measuring 0.5 x 0.5 x 0.2 cm. The entire specimen is submitted in one cassette for frozen section diagnosis. J - Received in fixative is one container labeled with the patient's name and designated right chin lesion. The specimen consists of a piece of mckeon-white skin ellipse measuring 1.1 x 0.5 cm and up to 0.3 cm in thickness. The specimen is inked, serially sectioned and submitted entirely in one cassette. / SJ:pasha 02/01/2023 TC:0 CPT: 24588 x10, 12543 x9
--- NOTE | 2023-02-01 07:17 | EKG12_ITS ---
Test Reason : PREOP Blood Pressure : / mmHG Vent. Rate : 079 BPM Atrial Rate : 079 BPM P-R Int : 132 ms QRS Dur : 200 ms QT Int : 478 ms P-R-T Axes : 083 151 -44 degrees QTc Int : 548 ms Atrial-sensed ventricular-paced rhythm Abnormal ECG When compared with ECG of 13-MAY-2021 21:52, Vent. rate has increased BY 9 BPM Confirmed by BROCK WHITE, KIERAN ([id number]), production editor NICK VERGARA ([id number]) on 02/09/2023 7:35:03 AM Referred By: Syd Pino Confirmed By:KIERAN GUTIÉRREZ MD
[2023-02-01] MEDS: Lactated Ringers 1,000 ML 15 ML IV (07:48)
[2023-02-01 07:49] VITALS: BP 123/65; PULSE 76; RESP 18; TEMP 36.1; O2SAT 99; BMI 24.7
[2023-02-01 07:51] LABS: Hematocrit 39.5 % (37-47); Hemoglobin 12.8 g/dL (12.0-15.0); Mean Corp Hgb Conc 32.4 g/dL (32-36); Mean Corpuscular Hgb 30.1 pg (27.0-32.0); Mean Corpuscular Volume 92.9 fL (81-99); Mean Platelet Vol. 9.8 fl (6.2-12.0); Platelet Count 188 K/mm3 (150-450); RBC Distribution Width CV 13.4 % (11.6-14.6); RBC Distribution Width SD 45.6 fl (35.1-43.9); Red Blood Count 4.25 M/mm3 (4.2-5.4); White Blood Count 7.2 K/mm3 (4.4-11.0)
[2023-02-01 07:59] LABS: Bedside Glucose 103 mg/dL (74-106)
[2023-02-01 08:17] LABS: Anion Gap 5 (5-15); BUN 23 mg/dL (7-18); BUN/Creat Ratio 25.2 RATIO (10-20); Calcium,Total 8.4 mg/dL (8.5-10.1); Chloride 108 mmol/L (98-107); Creatinine, Serum 0.91 mg/dL (0.55-1.02); EST Glomerular Filtration Rate 65 mL/min (>60); Est Glom Filt Rate - Afr Amer 79 mL/min (>60); Estimated Creatinine Clearance 54.62 ml/min; Glucose 101 mg/dL (74-106); Potassium 3.4 mmol/L (3.5-5.1); Sodium Level 140 mmol/L (136-145)
--- NOTE | 2023-02-01 08:43 | PCM.DC.SUM ---
Providers Primary Care Physician: Dr. Dusty Chen DO Reason For Visit: EXCISION LESION RT Medications at Discharge Home Medications furosemide 20 mg tablet 20 mg PO DAILY Water Pill 05/06/21 potassium 99 mg tablet 99 mg PO DAILY Supplement 05/06/21 carvedilol 6.25 mg tablet 6.25 mg PO BID blood pressure 05/13/21 dapagliflozin propanediol 10 mg tablet (Farxiga) 10 mg PO DAILY diabetes 05/13/21 sacubitril 24 mg-valsartan 26 mg tablet (Entresto) 1 tab PO BID heart 05/13/21 spironolactone 25 mg tablet 12.5 mg PO DAILY diuretic 05/13/21 Weight / BMI Weight Weight: 69.4 kg Body Mass Index (BMI) 24.7 ABG / Lab / Microbiology Data 02/01/23 07:40 02/01/23 07:40 Laboratory: Laboratory Results - last 24 hr 02/01/23 07:35: POC Glucose 103 02/01/23 07:40: WBC 7.2, RBC 4.25, Hgb 12.8, Hct 39.5, MCV 92.9, MCH 30.1, MCHC 32.4, RDW Std Deviation 45.6 H, RDW Coeff of Bonifacio 13.4, Plt Count 188, MPV 9.8, Sodium 140, Potassium 3.4 L, Chloride 108 H, Carbon Dioxide 27.0, Anion Gap 5, BUN 23 H, Creatinine 0.91, Estim Creat Clear Calc 54.62, Est GFR (MDRD) Af Amer 79, Est GFR (MDRD) Non-Af 65, BUN/Creatinine Ratio 25.2 H, Glucose 101, Calcium 8.4 L D/C Instructions Discharge Diet: No restrictions Discharge Activity: Return to Normal Activity Additional Instructions: Remove dressings tomorrow and discard. Apply antibiotic ointment 3x/day to the sutures. May get the sutures wet on Wednesday. Tylenol as needed. Please Follow Up With: Syd Pino MD When: 10 days Meaningful Use Info Meaningful Use Diagnoses (Choose all that apply): None applicable Discharge Plan Admission Attending Provider: Syd Pino Primary Care Provider: Dusty Chen Discharge Orders/Prescriptions Prescriptions: No Action potassium 99 mg Tablet 99 mg PO DAILY Patient Comments: Takes daily with lasix furosemide 20 mg tablet 20 mg PO DAILY Patient Comments: Patient states she takes daily but will take a second dose in the evening if needed carvedilol 6.25 mg tablet 6.25 mg PO BID spironolactone 25 mg tablet 12.5 mg PO DAILY Farxiga 10 mg tablet 10 mg PO DAILY Entresto 24-26 mg tablet 1 tab PO BID Referrals / Follow Up: Care Physician,No Primary [Non-Staff] - Disposition Disposition (needs filled in before D/C Order can be placed): Home, Self Care
[2023-02-01] MEDS: Lidocaine 1% /Epi 1:100 (20ml) 20 ML Vial (08:58)
[2023-02-01] MEDS: Mupirocin Ointment 22gm Tube 1 APPLIC (10:20)
[2023-02-01 11:00] VITALS: BP 123/65; BP 98/47; PULSE 60; RESP 14; TEMP 36.1; O2SAT 96
[2023-02-01 11:05] VITALS: BP 101/59; BP 123/65; PULSE 60; RESP 16; O2SAT 98
[2023-02-01 11:10] VITALS: BP 100/47; BP 123/65; PULSE 60; RESP 16; O2SAT 97
[2023-02-01 11:15] VITALS: BP 105/47; BP 123/65; PULSE 60; RESP 16; TEMP 36.1; O2SAT 98
--- NOTE | 2023-02-01 11:30 | PCM.OPRPT ---
Report of Operation Date of Procedure: 02/01/23 Pre-Operative Diagnosis: Right ear carcinoma forehead carcinoma chin lesion Post-Operative Diagnosis: same Surgery/Procedure Performed:: Excision of right ear carcionma with intermediate repair (25 x 15 mm) excision of forehead carcinoma with intermediate repair (9 x 15 mm) excision of chin lesion with intermediate repair (9x15) Surgeon: Syd Pino Type of Anesthesia: Local MAC Anesthesiologist: Claus Gusman Estimated Blood Loss (mL): minimal Description of Procedure: The patient was taken to the operating room on 02/01/2023. She was placed in the supine position on the operating room table. The right ear and face were prepped and draped sterilely. 1% lidocaine with epinephrine was injected into the skin surrounding the right ear lesion, right chin lesion and forehead lesion. After sufficient anesthesia and vasoconstriction, I excised a wedge from the right helix with 5 mm margins superiorly and inferiorly. The specimen was marked and sent for frozen section. I continue to have positive margins on the superior aspect. I sent 5 more margins until the fifth margin was free of basal cell carcinoma. I then entertained closure. Hemostasis was achieved with bipolar cautery. The cartilage was closed with interrupted 4-0 Vicryl. The skin was closed with 6-0 nylon. Next, the chin lesion was excised in an ellipse with a 15 blade. Hemostasis was achieved with bipolar cautery. I then undermined the skin with sharp scissors. I then closed with 4-0 Vicryl for the deep layers and 6-0 nylon for the skin. Next, I excised the forehead lesion in an ellipse with a 15 blade. This was marked and sent for frozen section. Eventually heard back that I had positive margins medially. Additional specimen was sent and found to be free of disease. Hemostasis was achieved with bipolar cautery. The skin was undermined with sharp scissors. I then closed this with 4-0 Vicryl for the deep layers and 6-0 nylon on the skin. Bactroban was applied to all of the incisions. A Marin was applied to the ear and OpSite was applied to the forehead and chin. The patient was then removed from the operating room brought to the recovery room in stable condition. blood loss minimal, replacement none. sponge, needle and instrument count were correct at the end of the procedure.
[2023-02-01 12:52] VITALS: BP 112/70; BP 123/65; PULSE 70; RESP 18; TEMP 36.8; O2SAT 100
== END 2023-02-01 13:00 | disposition home or self-care (01) ==
LOC: SDC 07:10 → AC 07:12
PROVIDERS: PCP Preventive Medicine Occupational Medicine; Referring Provider Otolaryngology; Visit Provider Otolaryngology
PROC: (CPT 12051; principal; 2023-02-01 08:35)
DX: C44.202 Unspecified malignant neoplasm of skin of right ear and external auricular canal (principal); E11.9 Type 2 diabetes mellitus without complications; Z95.810 Presence of automatic (implantable) cardiac defibrillator; I10 Essential (primary) hypertension
CPT/HCPCS: 12051; 00300; 80048; 82962; 85027; 88305; 88331; 88341; 88342; 93005; J7120; J2405